=== PATIENT | female | born 1975 | race Hispanic/Latino ===

== ENCOUNTER 2019-12-23 09:22 | Inpatient (IN) | payer MEDICAID, SELFPAY ==
--- NOTE | 2019-12-23 10:47 | RAD ---
EXAM: Single view of the chest HISTORY: Flank pain and swelling in lower extremities. COMPARISON: 12/09/2010 FINDINGS: Single view of the chest shows a normal sized cardiomediastinal silhouette. There are multi focal infiltrates in the lungs which are more prominent in the bases. Trace bilateral pleural effusions cannot be excluded. The bones are unremarkable IMPRESSION: Bibasilar infiltrates with questionable trace bilateral pleural effusions.
[2019-12-23 10:54] LABS: #Eosinphils 0.2 thou/uL (0.0-0.7); #Lymphocytes 1.1 thou/uL (1.20-3.40); #Monocytes 0.4 thou/uL (0.11-0.59); #Neutrophils 4.2 thou/uL (1.40-6.50); %Basophils 0.4 % (0.0-1.0); %Eosinophils 4.1 % (0.0-10.0); %Lymphocytes 18.5 % (21.0-51.0); %Monocytes 7.3 % (0.0-10.0); %Neutrophils 69.7 % (42.0-75.0); Hemoglobin 9.4 g/dL (12.0-16.0); Mean Corpuscular HGB CONC 29.7 g/dL (32.0-36.0); Mean Corpuscular Hemoglobin 23.5 pg (27.0-31.0); Mean Corpuscular Volume 79.3 fL (78.0-98.0); Mean Platelet Volume 9.5 fL (7.4-10.4); Platelet Count 385 thou/uL (130-400); RBC Distribution Width 22.1 % (11.5-14.5); Red Blood Cell (RBC) Count 3.99 mill/uL (4.20-5.40)
[2019-12-23 11:18] LABS: ALT (SGPT) 19 U/L (8-55); AST (SGOT) 23 U/L (5-34); Albumin 3.1 g/dL (3.5-5.0); Alkaline Phosphatase 64 U/L (40-110); Anion Gap 13 mmol/L (10-20); BUN (Urea Nitrogen) 18 mg/dL (7.0-18.7); Bilirubin, Total 0.5 mg/dL (0.2-1.2); Calc. Creatinine Clearance 0 mL/min (70-130); Calcium 8.9 mg/dL (7.8-10.44); Carbon Dioxide 25 mmol/L (22-29); Chloride 105 mmol/L (98-107); Estimated GFR-MDRD 31; Globulin 3.7 g/dL (2.4-3.5); Glucose 146 mg/dL (70-105); Lipase 22 U/L (8-78); Magnesium 2.1 mg/dL (1.6-2.6); Potassium 4.1 mmol/L (3.5-5.1); Protein, Total 6.8 g/dL (6.0-8.3); Sodium 139 mmol/L (136-145)
[2019-12-23 11:21] LABS: Anisocytosis MODERATE=16-30 cells (100X) (0-5/hpf); Hypochromia SLIGHT = 6-15 cells (100X) (0-5/hpf); MDiff Complete? YES; Platelet Morphology Comment Appears Adequate; Polychromasia SLIGHT = 2-3 cells (100X) (0-2/hpf)
[2019-12-23] MEDS ORDERED: Nitroglycerin 2% Ointment 1 INCH/1 GM Packet ONE (12:44)
[2019-12-23] MEDS ORDERED: Furosemide 20 MG/2 ML VIAL ONE (12:44)
[2019-12-23] MEDS ORDERED: Aspirin Chewable 81 MG TAB ONE (12:44)
[2019-12-23] MEDS ORDERED: hydrALAZINE 20 MG/ML VIAL ONE (14:15)
[2019-12-23 14:37] LABS: Bacteria/HPF None Seen HPF (None Seen); Bilirubin Negative (Negative); Blood, Urine Negative (Negative); Clarity Clear (Clear); Glucose, Urine (Dipstick) Normal (Negative); Ketone, Urine Negative (Negative); Leukocyte Negative Leu/uL (Negative); Nitrite Negative (Negative); Protein, Urine (Dipstick) 100 mg/dL (Neg-Trace); RBC/HPF 0-3 HPF (0-3); Specific Gravity, Urine 1.006 (1.002-1.036); Squamous Epithelial 0-3 HPF (0-3); Urobilinogen Normal mg/dL (Less than 2); WBC/HPF 0-3 HPF (0-3)
[2019-12-23 14:58] LABS: Troponin I 0.045 ng/mL (< 0.028)
[2019-12-23] MEDS ORDERED: Senokot S 8.6-50 MG TAB PO PRN (15:59)
[2019-12-23] MEDS ORDERED: Ondansetron ODT 4 MG TAB PO PRN (15:59)
[2019-12-23] MEDS ORDERED: Calcium Carbonate 500 MG ChewTAB PO PRN (15:59)
[2019-12-23] MEDS ORDERED: Bisacodyl 5 MG TAB PO PRN (15:59)
[2019-12-23] MEDS ORDERED: Ondansetron PF 4 MG/2 ML Vial IVP PRN (15:59)
[2019-12-23 17:09] LABS: Troponin I 0.032 ng/mL (< 0.028)
--- NOTE | 2019-12-23 20:15 | PDOC.HHP ---
Hospitalist HPI - History of Present Illness leg swelling History of Present Illness: This is a 44 year old female with past medical history of diabetes, who presented to the ER with leg swelling. THe patent states that her legs have been swollen for the past three weeks. She states that she has gained over 30 pounds. Her normal weight is around 190, however the past week she was 220 pounds. She denies rashes, fevers or chills in that area. SHe also reports sharp chest pains over the past one week, that comes and goes and last for 30 minutes at a time. Her pain is worst with eating, but not on exertion. She also reports shortness of breath on exertion and while laying down. She used to sleep on one pillow but now has been sleeping on two pillows for the past one week. She also has noticed that her abdomen has become more swollen and this has been making her nauseous. She has no cough, no fevers, or no chills. The patient also reports decreased urine output over the past one week as well. She also states that she stopped using her insulin two weeks ago because of her abdominal pain and weight gain ED Course: The patient presented to the ER with a BP of 209/112, heart rate of 106. She Hospitalist ROS - Review of Systems Constitutional: denies: fever, chills Eyes: denies: pain, vision change ENT: denies: ear pain, ear discharge Respiratory: reports: shortness of breath, SOB with excertion. denies: cough, dry Cardiovascular: reports: chest pain, orthopnea. denies: palpitations Gastrointestinal: denies: nausea, vomiting, abdominal pain, diarrhea Genitourinary: reports: other (oliguria) Musculoskeletal: denies: neck pain, shoulder pain Skin: denies: rash, lesions Neurological: denies: weakness, numbness Hospitalist History - Past Medical History Other Medical History: Type II diabetes Depression - Past Surgical History Other Surgical History: Two C sections - Family History Other Family History: Diabetes in her dad Depression in her mom - Social History Smoking Status: Never smoker Alcohol: reports: Occassional Drugs: reports: none Living Situation: With Family - Exam General Appearance: NAD, awake alert Eye: PERRL, anicteric sclera ENT: normocephalic atraumatic, no oropharyngeal lesions Neck: no JVD Heart: RRR, no murmur, no gallops, no rubs Respiratory: CTAB, no rales, no ronchi Respiratory - other findings: diminished at the bases Gastrointestinal: soft Gastrointestinal - other findings: abdomen distended. Dull to percusssion RUQ and LUQ Extremities: no cyanosis, 2+ LE edema Skin: normal turgor, no lesions, no rashes Hospitalist Results - Labs Result Diagrams: 12/23/19 10:39 12/23/19 10:39 Lab results: WBC 6.0 thou/uL (4.8-10.8) 12/23/19 10:39 Hgb 9.4 g/dL (12.0-16.0) L 12/23/19 10:39 Hct 31.7 % (36.0-47.0) L 12/23/19 10:39 MCV 79.3 fL (78.0-98.0) 12/23/19 10:39 Plt Count 385 thou/uL (130-400) 12/23/19 10:39 Neutrophils % 69.7 % (42.0-75.0) 12/23/19 10:39 Sodium 139 mmol/L (136-145) 12/23/19 10:39 Potassium 4.1 mmol/L (3.5-5.1) 12/23/19 10:39 Chloride 105 mmol/L (98-107) 12/23/19 10:39 Carbon Dioxide 25 mmol/L (22-29) 12/23/19 10:39 BUN 18 mg/dL (7.0-18.7) 12/23/19 10:39 Creatinine 1.78 mg/dL (0.6-1.1) H 12/23/19 10:39 Glucose 146 mg/dL (70-105) H 12/23/19 10:39 Calcium 8.9 mg/dL (7.8-10.44) 12/23/19 10:39 Total Bilirubin 0.5 mg/dL (0.2-1.2) 12/23/19 10:39 AST 23 U/L (5-34) 12/23/19 10:39 ALT 19 U/L (8-55) 12/23/19 10:39 Alkaline Phosphatase 64 U/L (40-110) 12/23/19 10:39 Troponin I 0.032 ng/mL (< 0.028) H 12/23/19 16:36 B-Natriuretic Peptide 1383.6 pg/mL (0-100) H 12/23/19 10:39 Serum Total Protein 6.8 g/dL (6.0-8.3) 12/23/19 10:39 Albumin 3.1 g/dL (3.5-5.0) L 12/23/19 10:39 Lipase 22 U/L (8-78) 12/23/19 10:39 Urine Ketones Negative mg/dL (Negative) 12/23/19 14:12 Urine Blood Negative (Negative) 12/23/19 14:12 Urine Nitrite Negative (Negative) 12/23/19 14:12 Ur Leukocyte Esterase Negative Angela/uL (Negative) 12/23/19 14:12 Urine RBC 0-3 HPF (0-3) 12/23/19 14:12 Urine WBC 0-3 HPF (0-3) 12/23/19 14:12 Ur Squamous Epith Cells 0-3 HPF (0-3) 12/23/19 14:12 Urine Bacteria None Seen HPF (None Seen) 12/23/19 14:12 - EKG Interpretation EKG: sinus tachycardia Hospitalist H&P A/P - Plan Plan: This is a 44 year old female who presented to the ER with SOB on exertion, orthopnea, leg swelling, possibly related to CHF Acute CHF exacerbation - likely new diagnosis - will diurese with lasix 40 mg IV bid - troponin mildly elevated, will check ECHO KENNY - likely cardiorenal syndrome - diurese with lasix - UA normal Type II diabetes - insulin sliding scale for now, unclear how much she was taking at home Anemia - Hb 9.3, check iron panel, B12, folate, TSH DVT prophylaxis: heparin SC Code status: full code
[2019-12-23] MEDS ORDERED: Dextrose 50% Abboject 50 ML SYRINGE SLOW IVP PRN (20:18)
[2019-12-23] MEDS ORDERED: Dextrose 5% in Water 1,000 ML IV PRN (20:18)
[2019-12-23 20:29] VITALS: BMI 35.9
[2019-12-23] MEDS: Furosemide 40 MG/4 ML VIAL SLOW IVP SCH (21:16)
[2019-12-23] MEDS: Heparin 5,000 UNITS/ML VIAL SC SCH (21:16)
[2019-12-23] MEDS: Acetaminophen 325 MG TAB PO PRN (21:17)
[2019-12-24] MEDS: Acetaminophen 325 MG TAB PO PRN ×4 (04:26→20:32)
[2019-12-24] MEDS ORDERED: hydrALAZINE 20 MG/ML VIAL SLOW IVP SCH (04:30)
[2019-12-24 05:10] LABS: Iron 20 ug/dL (50-170); Iron Binding Capacity, Total 263 mcg/dL (265-497)
[2019-12-24 05:11] LABS: ALT (SGPT) 16 U/L (8-55); AST (SGOT) 22 U/L (5-34); Albumin 2.8 g/dL (3.5-5.0); Alkaline Phosphatase 56 U/L (40-110); Anion Gap 13 mmol/L (10-20); BUN (Urea Nitrogen) 16 mg/dL (7.0-18.7); Bilirubin, Total 0.6 mg/dL (0.2-1.2); Calc. Creatinine Clearance 70 mL/min (70-130); Calcium 8.8 mg/dL (7.8-10.44); Carbon Dioxide 23 mmol/L (22-29); Chloride 105 mmol/L (98-107); Estimated GFR-MDRD 37; Globulin 3.2 g/dL (2.4-3.5); Glucose 120 mg/dL (70-105); Iron 17 ug/dL (50-170); Iron Binding Capacity, Total 263 mcg/dL (265-497); Potassium 3.9 mmol/L (3.5-5.1); Sodium 137 mmol/L (136-145)
[2019-12-24 05:28] LABS: #Eosinphils 0.3 thou/uL (0.0-0.7); #Monocytes 0.5 thou/uL (0.11-0.59); #Neutrophils 4.4 thou/uL (1.40-6.50); %Basophils 0.8 % (0.0-1.0); %Eosinophils 4.7 % (0.0-10.0); %Lymphocytes 15.8 % (21.0-51.0); %Monocytes 8.3 % (0.0-10.0); %Neutrophils 70.5 % (42.0-75.0); Hemoglobin 8.9 g/dL (12.0-16.0); Hypochromia SLIGHT = 6-15 cells (100X) (0-5/hpf); MDiff Complete? YES; Mean Corpuscular HGB CONC 28.7 g/dL (32.0-36.0); Mean Corpuscular Hemoglobin 22.8 pg (27.0-31.0); Mean Corpuscular Volume 79.5 fL (78.0-98.0); Mean Platelet Volume 10.1 fL (7.4-10.4); Platelet Count 389 thou/uL (130-400); Platelet Morphology Comment Appears Adequate; RBC Distribution Width 22.3 % (11.5-14.5); Red Blood Cell (RBC) Count 3.88 mill/uL (4.20-5.40); White Blood Cell (WBC) Count 6.2 thou/uL (4.8-10.8)
[2019-12-24 05:34] LABS: Ferritin 32.05 ng/mL (10-291); Thyroid Stimulating Hormone 1.8048 uIU/mL (0.35-4.94)
[2019-12-24] MEDS: Heparin 5,000 UNITS/ML VIAL SC SCH ×3 (07:54→20:33)
[2019-12-24] MEDS: Furosemide 40 MG/4 ML VIAL SLOW IVP SCH ×2 (07:54→20:33)
--- NOTE | 2019-12-24 09:09 | ULT ---
BILATERAL RENAL ULTRASOUND: Date: 12/24/2019 HISTORY: Chronic renal failure. COMPARISON: None. FINDINGS: Right Kidney: Normal cortical echotexture. No hydronephrosis. Right kidney measures 11.2 x 4.2 x 5.4 cm. Left Kidney: Normal cortical echotexture. No hydronephrosis. Left kidney measures 5.0 x 11.0 x 5.6 cm. Urinary bladder has a normal mucosa. Bladder volume is 274 mL. IMPRESSION: No hydronephrosis. POS: [facility]
[2019-12-24 09:13] LABS: HBSAg Index 0.12 S/CO (0-0.99); Hep B Surf Ag Non-Reactive S/CO (NonReactive); Hep C IgG Ab Non-Reactive (NonReactive); Hep C Index 0.17 S/CO (0-0.79)
--- NOTE | 2019-12-24 09:44 | CON ---
DATE OF CONSULTATION: HISTORY OF PRESENT ILLNESS: Ms. Elena is a 44-year-old white female, who came in due to worsening leg edema. She was also complaining of some mild shortness of breath. She tells me that she has gained about 20 to 30 pounds in the last several weeks. Please note, this patient is a known diabetic. Chest x-ray showed also diffuse bilateral infiltrates of the lower lung base, which may be considered for a possibility of CHF. She has been started on diuresis. Her breathing this morning is much improved. We are being consulted for her acute kidney injury. As per her history, the patient has had a creatinine as high as more than 2 milligram percent in the outpatient setting. REVIEW OF SYSTEMS: Positive for mild shortness of breath. Positive for weight gain. Positive for leg edema. No nausea. No vomiting. No chest pain. Appetite and energy level are decreased. No fever or chills. No visual activity changes. No gross hematuria. No dysuria. No urinary frequency. No productive cough. MEDICATIONS: Currently on: 1. Furosemide 40 mg IV q.12. 2. Heparin 5000 units subcu t.i.d. 3. Hydralazine 10 mg IV q.4 p.r.n. 4. Zofran 4 mg IV q.6 p.r.n. Home medications have included: 1. Metformin 1000 mg p.o. b.i.d. 2. Lisinopril 10 mg daily. PAST MEDICAL HISTORY: Type 2 diabetes mellitus and hypertension. PAST SURGICAL HISTORY: Status post hysterectomy. SOCIAL HISTORY: The patient is , two children. Lives in [place]. Education, primary grade. Currently, no smoking. No alcohol intake. No IV drug abuse. The patient is a housewife. FAMILY HISTORY: No family history of ESRD. ALLERGIES: NONE. TRAUMA: None. IMMUNIZATION: Up-to-date. HOSPITALIZATIONS: Please see past medical history. PHYSICAL EXAMINATION: VITAL SIGNS: Blood pressure 155/83, heart rate 105, respiratory rate 18, temperature 98.2, and O2 saturation 97% on room air. GENERAL: The patient is awake, supine, comfortable, morbidly obese. SKIN: Adequate turgor. HEENT: She has slightly pale conjunctivae. Anicteric sclerae. NECK: No neck mass. No carotid bruits. No JVD. CHEST: No deformities. LUNGS: Decreased breath sounds. HEART: Tachycardic. No murmur. No gallops. No rubs. ABDOMEN: Globular, soft, and nontender. No masses. EXTREMITIES: Positive for edema. NEUROLOGIC: Awake and oriented to 3 spheres. Moving all extremities. No tremors. No asterixis. No ataxia. LABORATORY DATA: Laboratories of December 24, 2019; white count 6.2, hemoglobin 8.9. Sodium 137, potassium 3.9, chloride 105, carbon dioxide 23, BUN 16, creatinine 1.54, glucose 120, iron 17, TIBC 263. AST 22, ALT 16, and albumin 2.8. Urinalysis of December 23, 2019; specific gravity 1.006, urine protein is 100, rbc 0 to 3, wbc 0 to 3. BNP is elevated at 1383. Troponin I 0.045. Cardiac echo pending. Chest x-ray did show bibasilar bilateral infiltrates. ASSESSMENT AND PLAN: 1. Shortness of breath. Consider the possibility of congestive heart failure with elevated BNP and chest x-ray findings. Agree with the current diuretic regimen. 2. Acute kidney injury-most likely related to the previous use of lisinopril. We will hold off lisinopril temporarily. We would also at least do an albumin infusion of 25 g IV q.6 for six doses while she is on a diuretic regimen. We are awaiting a cardiac echo. 3. Proteinuria, this most likely from an underlying diabetic nephropathy. Please note, a renal ultrasound has been ordered. We will be rechecking a basic met and CBC again in a.m. 4. Anemia-most likely iron deficiency anemia. She may need a GI workup in the near future. Thank you for the consult. We will continue to follow. Job ID: [id number] [facility]
[2019-12-24] MEDS: Albumin 25% 25 GM/100 ML BOT IVPB SCH ×2 (10:08→15:18)
[2019-12-24] MEDS: HumaLOG 300 UNITS/3 ML VIAL SC PRN (10:59)
[2019-12-24 13:46] LABS: Creatinine, Urine 41.25 mg/dL (47-110)
[2019-12-24] MEDS: hydrALAZINE 20 MG/ML VIAL SLOW IVP PRN (15:32)
--- NOTE | 2019-12-24 15:58 | PDOC.HOSPP ---
- Subjective Encounter Date: 12/24/19 Encounter Time: 07:00 Subjective: The patient states she feels a bit better. Her leg swelling has gone down some. She is not sure if she lost weight or not. No dyspnea on exertion. ECHO shows EF 45% - Objective Vital Signs & Weight: Vital Signs (12 hours) Temp Pulse Resp BP Pulse Ox 12/24/19 15:29 99.7 F H 106 H 18 179/87 H 97 12/24/19 11:25 98.1 F 104 H 18 160/88 H 97 12/24/19 07:04 98.2 F 105 H 18 155/83 H 97 12/24/19 04:26 107 H Weight Weight 209 lb Result Diagrams: 12/24/19 04:33 12/24/19 04:33 Additional Labs: Accuchecks 12/24/19 12/24/19 11:00 05:54 POC Glucose 231 H 128 H Hospitalist ROS - Review of Systems Constitutional: denies: fever, chills - Medication Medications: Active Medications Generic Name Dose Route Start Last Admin Trade Name Freq PRN Reason Stop Dose Admin Acetaminophen 650 mg 12/23/19 15:59 12/24/19 15:32 Tylenol PO 650 mg Q4H PRN Administration Headache/Fever/Mild Pain (1-3) Albumin Human 25 gm 12/24/19 09:00 12/24/19 15:18 Albumin 25% IVPB 12/25/19 09:01 25 gm 0300,0900,1500 CINDY Administration Calcium Carbonate 1,000 mg 12/23/19 15:59 12/23/19 21:17 Tums PO 1,000 mg Q4H PRN Administration Heartburn or Indigestion Furosemide 40 mg 12/23/19 21:00 12/24/19 07:54 Lasix SLOW IVP 40 mg BID CINDY Administration Heparin Sodium (Porcine) 5,000 units 12/23/19 21:00 12/24/19 15:18 Heparin SC 5,000 units TID CINDY Administration Hydralazine HCl 10 mg 12/24/19 04:17 12/24/19 15:32 Apresoline SLOW IVP 10 mg Q4H PRN Administration SBP Greater Than 170 Insulin Human Lispro 0 units 12/23/19 20:18 12/24/19 10:59 Humalog SC 3 unit .MILD SLIDING SCALE PRN Administration Mild Correctional Scale - Exam General Appearance: NAD, awake alert Eye: PERRL, anicteric sclera ENT: normocephalic atraumatic, no oropharyngeal lesions Neck: no JVD Heart: RRR, no murmur, no gallops, no rubs Respiratory: CTAB, no wheezes, no rales, no ronchi Gastrointestinal: soft, non-tender, non-distended, normal bowel sounds Extremities: no cyanosis, no clubbing, 2+ LE edema Skin: normal turgor, no lesions, no rashes Neurological: cranial nerve grossly intact, normal sensation to touch, no focal deficits, no new deficit Musculoskeletal: normal tone, normal strength, no muscle wasting Psychiatric: normal affect, normal behavior, A&O x 3, oriented to person Hosp A/P - Plan This is a 44 year old female who presented to the ER with SOB on exertion, orthopnea, leg swelling, possibly related to CHF Acute CHF exacerbation - likely new diagnosis - will diurese with lasix 40 mg IV bid. ECHO shows EF 45% - will place cardiology consult for new CHF diagnosis. Troponin mildly elevated KENNY - improving, creatinine down to 1.55 - continue diuresis Peripheral edema - likely from CHF - check bilateral dopplers to rule out DVT Type II diabetes - insulin sliding scale for now, unclear how much she was taking at home Anemia of chronic disease - Hb 9.3 - ferritin elevated, B12/folate, TSH normal Diet: NPO after midnight, consider stress test in am rule out IHD Code status: heparin SC
--- NOTE | 2019-12-24 18:07 | ULT ---
BILATERAL LOWER EXTREMITY VENOUS DOPPLER ULTRASOUND: 12/24/19 HISTORY: Bilateral lower extremity edema. TECHNIQUE: Valenzuela scale ultrasound with color flow and spectral Doppler imaging of the deep venous system of the l ower extremity was performed bilaterally. FINDINGS: There is good flow, compression, and augmentation noted in the common femoral, femoral, deep femoral, popliteal, posterior tibial and greater saphenous veins on either side. IMPRESSION: No evidence of DVT in either lower extremity. POS: [facility]
[2019-12-25] MEDS: Albumin 25% 25 GM/100 ML BOT IVPB SCH ×5 (02:47→21:34)
[2019-12-25 04:37] LABS: Hemoglobin 8.2 g/dL (12.0-16.0); Mean Corpuscular HGB CONC 29.6 g/dL (32.0-36.0); Mean Corpuscular Hemoglobin 23.4 pg (27.0-31.0); Mean Corpuscular Volume 79.3 fL (78.0-98.0); Mean Platelet Volume 9.9 fL (7.4-10.4); Platelet Count 339 thou/uL (130-400); RBC Distribution Width 22.2 % (11.5-14.5); Red Blood Cell (RBC) Count 3.51 mill/uL (4.20-5.40); White Blood Cell (WBC) Count 4.8 thou/uL (4.8-10.8)
[2019-12-25 04:49] LABS: Anion Gap 12 mmol/L (10-20); BUN (Urea Nitrogen) 20 mg/dL (7.0-18.7); Calc. Creatinine Clearance 65 mL/min (70-130); Calcium 9.1 mg/dL (7.8-10.44); Carbon Dioxide 26 mmol/L (22-29); Chloride 104 mmol/L (98-107); Estimated GFR-MDRD 34; Glucose 129 mg/dL (70-105); Potassium 3.7 mmol/L (3.5-5.1); Sodium 138 mmol/L (136-145)
[2019-12-25] MEDS ORDERED: Sodium Chloride 0.9% 10 ML ONE (07:49)
[2019-12-25] MEDS: Furosemide 40 MG/4 ML VIAL SLOW IVP SCH (08:01)
[2019-12-25] MEDS: hydrALAZINE 20 MG/ML VIAL SLOW IVP PRN (08:02)
[2019-12-25] MEDS: Heparin 5,000 UNITS/ML VIAL SC SCH ×3 (08:02→21:34)
[2019-12-25] MEDS: Acetaminophen 325 MG TAB PO PRN ×2 (08:19→16:58)
[2019-12-25] MEDS ORDERED: Albumin 25% 25 GM/100 ML BOT IVPB ONE (08:21)
[2019-12-25] MEDS ORDERED: Carvedilol 6.25 MG TAB PO SCH ×3 (08:39→17:00)
--- NOTE | 2019-12-25 08:55 | PRG ---
DATE OF SERVICE: 12/25/2019 SUBJECTIVE: Ms. Elena is a 44-year-old female, who was admitted for generalized edema with shortness of breath. She has been started on diuretics. I have already started her on albumin infusion. The patient tells me she is breathing better and the leg edema is much improved. A cardiac echo was done, which showed an EF of 45% to 50%. No worsening shortness of breath today. OBJECTIVE: VITAL SIGNS: Blood pressure 183/98, heart rate 109, respiratory rate 18, temperature 98, and O2 sat 95% on room air. GENERAL: The patient is awake, alert, comfortable, not in overt distress. SKIN: Adequate turgor. HEENT: She does have pinkish conjunctivae. Anicteric sclerae. NECK: No neck mass. No carotid bruits. No JVD. CHEST: No deformities. LUNGS: Clear breath sounds. HEART: Normal sinus rhythm. No murmur. No gallops. No rubs. ABDOMEN: Globular, soft, and nontender. No masses. EXTREMITIES: Positive for edema. MEDICATIONS: Medications of December 25, 2019, reviewed. LABORATORY DATA: December 24, 2019; urine protein 374, urine creatinine 41.25, ratio is 9. December 25, 2019; sodium 138, potassium 3.7, chloride 104, carbon dioxide 26, BUN 20, creatinine 1.66, and calcium 9.1. Hepatitis B surface antigen negative. Hepatitis C antibody negative. ASSESSMENT: 1. Chronic renal failure - with a longstanding history of diabetes mellitus and nephrotic range proteinuria, consider the possibility of diabetic nephropathy. Hepatitis B and C have been negative. In addition, we will do an BEBETO to rule out for possibility of lupus with this patient. Urine and serum protein immunoelectrophoresis will also be done with this patient. 2. Anasarca - continue Lasix 40 mg IV q.12. We will continue her albumin infusion. 3. Nephrotic range proteinuria and decreased ejection fraction. We will consider starting low-dose losartan 25 mg tablet once a day with careful monitoring of the renal function. Job ID: [id number]
[2019-12-25] MEDS ORDERED: hydrALAZINE 25 MG TAB PO SCH (09:00)
[2019-12-25] MEDS: Furosemide 40 MG TAB PO SCH ×2 (09:30→13:49)
--- NOTE | 2019-12-25 10:58 | CON ---
DATE OF CONSULTATION: HISTORY OF PRESENT ILLNESS: The patient is a 44-year-old woman, who presents for evaluation of dyspnea, lower extremity swelling, and epigastric discomfort. The patient has no previous cardiac history. The patient does have a history of diabetes mellitus and hypertension. The patient states she has been compliant with her medications. The patient reports a few weeks ago, she started having lower extremity swelling, she noted having increasing dyspnea. The patient also reported developing epigastric discomfort. The patient presented to the emergency room , admitted for further evaluation. The patient denies having any chest discomfort. The patient has cardiac risk factors of hypertension and diabetes mellitus. PAST MEDICAL HISTORY: 1. Hypertension. 2. Diabetes mellitus. PAST SURGICAL HISTORY: . SOCIAL HISTORY: Nonsmoker. ALLERGIES: NO KNOWN DRUG ALLERGIES. MEDICATIONS: 1. Lisinopril 10 daily. 2. Metformin 1000 b.i.d. REVIEW OF SYSTEMS: Ten-point system otherwise unremarkable. No history of easy bruising or bleeding or bright red blood per rectum. PHYSICAL EXAMINATION: GENERAL: This is an obese woman, in no acute distress. VITAL SIGNS: Blood pressure 183/98. NECK: Showed no jugular venous distention. LUNGS: Clear to auscultation. HEART: Regular rate and rhythm. Normal S1 and S2. No murmurs. ABDOMEN: Distended. EXTREMITIES: Showed mild bilateral edema. LABORATORY DATA: Sodium 138, potassium 3.7, chloride 104, bicarbonate 26, BUN 20, creatinine is 1.6. BNP was 1383. Her white blood cell count is 4.8, hemoglobin 8.2, hematocrit 27.8, and her platelets are 339. EKG normal sinus rhythm with a nonspecific T-wave abnormality. Echocardiogram, mildly decreased left ventricular ejection fraction at 45% to 50%. Chest x-ray revealed her to have normal heart size with small bilateral effusions. IMPRESSION: 1. Malignant hypertension. 2. Congestive heart failure, combined systolic/diastolic. 3. Renal insufficiency. 4. Diabetes mellitus. 5. Anemia. This patient presents with congestive heart failure. She has very poorly controlled hypertension. Her systolic blood pressure was over 200 on admission. The patient needs much more close monitoring of her blood pressure and her diabetes. The patient will undergo a stress test today to make sure there is no evidence of significant ischemia. We will follow this patient with you through her hospitalization. Job ID: [id number] [facility]
[2019-12-25] MEDS ORDERED: Regadenoson 0.4 MG/5 ML SYRINGE ONE (13:21)
[2019-12-25] MEDS: Losartan 25 MG TAB PO SCH (13:49)
--- NOTE | 2019-12-25 14:04 | NM ---
Radionucleotide stress only myocardial perfusion scan with CT attenuation and SPECT imaging HISTORY: Chest pain. FINDINGS: Lexiscan protocol. Homogeneous uptake of radiotracer throughout the left ventricular myocar dium. No focal perfusion defect or reversibility. QGS analysis of gated SPECT images shows small dyskinetic portion of the distal inferior wall. Left v entricular ejection fraction calculated at 57%. IMPRESSION : No evidence of ischemia. Normal LVEF.
--- NOTE | 2019-12-25 15:51 | PDOC.HOSPP ---
- Subjective Encounter Date: 12/25/19 Encounter Time: 09:00 Subjective: THe patient feels better today. SHe is able to walk, has some SOB while ambulating but improved. Leg swelling has improved. Pt had stress test today - Objective Vital Signs & Weight: Vital Signs (12 hours) Temp Pulse Resp BP Pulse Ox 12/25/19 15:47 112 H 16 164/83 H 97 12/25/19 13:45 98.2 F 114 H 16 153/75 H 96 12/25/19 10:23 174/84 H 12/25/19 07:55 98 F 109 H 18 183/98 H 95 12/25/19 04:00 98.6 F 107 H 18 183/96 H Weight Weight 217 lb 11.2 oz I&O: 12/24/19 12/25/19 12/26/19 06:59 06:59 06:59 Intake Total 240 Balance 240 Result Diagrams: 12/25/19 04:13 12/25/19 04:13 Additional Labs: Accuchecks 12/23/19 22:45 POC Glucose 167 H Hospitalist ROS - Review of Systems Constitutional: denies: fever, chills - Medication Medications: Active Medications Generic Name Dose Route Start Last Admin Trade Name Freq PRN Reason Stop Dose Admin Acetaminophen 650 mg 12/23/19 15:59 12/25/19 08:19 Tylenol PO 650 mg Q4H PRN Administration Headache/Fever/Mild Pain (1-3) Albumin Human 25 gm 12/25/19 09:00 12/25/19 15:09 Albumin 25% IVPB 12/26/19 03:01 25 gm Q6H CINDY Administration Calcium Carbonate 1,000 mg 12/23/19 15:59 12/23/19 21:17 Tums PO 1,000 mg Q4H PRN Administration Heartburn or Indigestion Furosemide 40 mg 12/25/19 09:00 12/25/19 13:49 Lasix PO 40 mg 0900,1400 CINDY Administration Heparin Sodium (Porcine) 5,000 units 12/23/19 21:00 12/25/19 15:09 Heparin SC 5,000 units TID CINDY Administration Hydralazine HCl 10 mg 12/24/19 04:17 12/25/19 08:02 Apresoline SLOW IVP 10 mg Q4H PRN Administration SBP Greater Than 170 Insulin Human Lispro 0 units 07/20/20 20:18 12/24/19 10:59 Humalog SC 3 unit .MILD SLIDING SCALE PRN Administration Mild Correctional Scale Losartan Potassium 25 mg 12/25/19 09:00 12/25/19 13:49 Cozaar PO 25 mg DAILY CINDY Administration Sodium Chloride 10 ml 12/25/19 09:00 12/25/19 10:09 Flush - Normal Saline IVF Not Given Q12HR CINDY - Exam General Appearance: NAD, awake alert Eye: PERRL, anicteric sclera ENT: normocephalic atraumatic, no oropharyngeal lesions Neck: no JVD Heart: RRR, no murmur, no gallops, no rubs Respiratory: CTAB, no wheezes, no rales, no ronchi Gastrointestinal: soft, non-tender, non-distended, normal bowel sounds Extremities: no cyanosis, no clubbing, 2+ LE edema Skin: normal turgor, no lesions, no rashes Neurological: cranial nerve grossly intact, normal sensation to touch, no focal deficits, no new deficit Musculoskeletal: normal tone, normal strength, no muscle wasting Psychiatric: normal affect, normal behavior, A&O x 3 Hosp A/P - Plan This is a 44 year old female who presented to the ER with SOB on exertion, orthopnea, leg swelling, possibly related to CHF Acute systolic CHF -. ECHO shows EF 45%. Was on lasix 40 mg IV bid, switch to oral 40 mg po bid today 12/24 - stress test today 12/24 shows no ischemia, dyskinetic inferior wall. Per cardiology medical management - I will add aspirin, check lipid panel tomorrow - bilateral dopplers negative for DVT - cardiology has been consulted #Hypertension #Sinus tachycardia - given imdur 30 mg this am - start coreg tonight KENNY - improving, creatinine increased again to 1.66 - nephrology is giving albumin - BEBETO pending Type II diabetes - insulin sliding scale for now, unclear how much she was taking at home Anemia of chronic disease - Hb 9.3 - ferritin elevated, B12/folate, TSH normal Diet: NPO after midnight, consider stress test in am rule out IHD Code status: heparin SC
[2019-12-25] MEDS ORDERED: Aspirin 81 mg Enteric Coated Tablet PO SCH (16:00)
[2019-12-25] MEDS: Carvedilol 6.25 MG TAB PO SCH (16:55)
[2019-12-25] MEDS ORDERED: Atorvastatin Calcium 20 MG TAB PO SCH (21:00)
[2019-12-26] MEDS: Albumin 25% 25 GM/100 ML BOT IVPB SCH (03:27)
[2019-12-26 04:44] LABS: #Basophils 0.1 thou/uL (0.0-0.2); #Eosinphils 0.4 thou/uL (0.0-0.7); #Lymphocytes 1.1 thou/uL (1.20-3.40); #Monocytes 0.5 thou/uL (0.11-0.59); #Neutrophils 2.5 thou/uL (1.40-6.50); %Basophils 1.1 % (0.0-1.0); %Eosinophils 8.2 % (0.0-10.0); %Lymphocytes 24.5 % (21.0-51.0); %Monocytes 11.2 % (0.0-10.0); Hemoglobin 7.8 g/dL (12.0-16.0); Mean Corpuscular HGB CONC 28.8 g/dL (32.0-36.0); Mean Corpuscular Hemoglobin 23.7 pg (27.0-31.0); Mean Corpuscular Volume 82.1 fL (78.0-98.0); Mean Platelet Volume 10.1 fL (7.4-10.4); Platelet Count 308 thou/uL (130-400); RBC Distribution Width 22.2 % (11.5-14.5); Red Blood Cell (RBC) Count 3.29 mill/uL (4.20-5.40); White Blood Cell (WBC) Count 4.6 thou/uL (4.8-10.8)
[2019-12-26 05:07] LABS: Anion Gap 16 mmol/L (10-20); BUN (Urea Nitrogen) 23 mg/dL (7.0-18.7); Calc. Creatinine Clearance 68 mL/min (70-130); Calcium 9.2 mg/dL (7.8-10.44); Carbon Dioxide 22 mmol/L (22-29); Cardiac Risk 3.8 (Less than 4.5); Chloride 104 mmol/L (98-107); Cholesterol 123 mg/dl (< 200 Desired); Estimated GFR-MDRD 33; Glucose 126 mg/dL (70-105); HDL Cholesterol 32 mg/dL (>60 Neg Risk); LDL Cholesterol, Calculated 67 mg/dL; Potassium 3.6 mmol/L (3.5-5.1); Sodium 138 mmol/L (136-145); Triglycerides 118 mg/dL (Less than 150)
--- NOTE | 2019-12-26 08:20 | PRG ---
DATE OF SERVICE: 12/26/2019 SUBJECTIVE: Ms. Elena is a 44-year-old female who was admitted for generalized edema. Initial cardiac echo showed a decreased EF, but stress test was done, which showed no active ischemia and the EF was noted to be within normal with that study. She also was worked up for the proteinuria, which is secondary to her presumed diabetic nephropathy. She does pill nephrotic range proteinuria. For that reason, we started her on losartan 25 mg tablet once a day. She has also been receiving albumin infusion to help maintain her GFR. No new complaints today. She tells me she is feeling better and breathing better. OBJECTIVE: VITAL SIGNS: Blood pressure is 175/95 - before BP medications, heart rate 104, respiratory rate 20, temperature 99.4, O2 saturation is 95%. GENERAL: The patient is awake, alert, comfortable, obese, not in distress. SKIN: Adequate turgor. HEENT: She has slightly pale conjunctivae. Anicteric sclerae. No neck mass. No carotid bruits. No JVD. CHEST: No deformities. LUNGS: Clear breath sounds. HEART: Normal sinus rhythm. No murmur. No gallops. No rubs. ABDOMEN: Globular, soft, nontender. No masses. EXTREMITIES: Trace edema. MEDICATIONS: Medications of December 26, 2019, was reviewed. LABORATORY DATA: Laboratories of December 26, 2019; white count 4.6, hemoglobin 7.8. Sodium 138, potassium 3.6, chloride 104, carbon dioxide 22, BUN 23, creatinine 1.67, glucose 126, calcium 9.2. Cholesterol is 123. ASSESSMENT AND PLAN: 1. Anemia - check stool cards. Consider starting ferrous sulfate 325 mg p.o. b.i.d. 2. Nephrotic range proteinuria - hepatitis B and C were negative. We are awaiting for an BEBETO with this patient. She will continue current diuretic regimen. Losartan has been added. 3. Chronic heart failure secondary to diabetic nephropathy, stable. Continue supportive care. 4. Recheck CBC, basic metabolic in a.m. Job ID: [id number]
[2019-12-26] MEDS: Furosemide 40 MG TAB PO SCH ×2 (08:31→15:50)
[2019-12-26] MEDS: Carvedilol 6.25 MG TAB PO SCH (08:31)
[2019-12-26] MEDS: Losartan 25 MG TAB PO SCH (08:31)
[2019-12-26] MEDS: Heparin 5,000 UNITS/ML VIAL SC SCH (08:32)
[2019-12-26] MEDS: hydrALAZINE 20 MG/ML VIAL SLOW IVP PRN (08:51)
[2019-12-26] MEDS ORDERED: Carvedilol 6.25 MG TAB PO SCH ×2 (09:00→17:00)
[2019-12-26] MEDS ORDERED: Aspirin 81 mg Enteric Coated Tablet PO SCH (09:00)
[2019-12-26] MEDS ORDERED: Amlodipine 5 MG TAB PO SCH (09:00)
[2019-12-26] MEDS: Acetaminophen 325 MG TAB PO PRN (11:14)
[2019-12-26 11:18] VITALS: TEMP 96.9
[2019-12-26 12:02] LABS: ANA Symphony (Qualitative) Negative (Negative); ANA Symphony (Quantitative) 0.1 Ratio (< 0.7 Negative); dsDNA IgG Antibody Less than 0.5 IU/mL (<10 Negative)
[2019-12-26] MEDS: HumaLOG 300 UNITS/3 ML VIAL SC PRN (13:10)
[2019-12-26 16:13] VITALS: BP 165/82
[2019-12-26] MEDS ORDERED: Ferrous Sulfate 325 MG TAB PO SCH (17:00)
--- NOTE | 2019-12-27 03:18 | DIS ---
DATE OF ADMISSION: 12/23/2019 DATE OF DISCHARGE: 12/26/2019 CONSULTATIONS: 1. Cardiology with Pj Burroughs MD. 2. Jim Kelly MD with Nephrology. DISCHARGE DIAGNOSES: 1. Acute systolic CHF with mild pericardial effusion 2. Hypertensive urgency. 3. Sinus tachycardia. 4. Acute kidney injury. 5. Anemia of chronic disease. BRIEF HISTORY OF PRESENT ILLNESS: This is a 44-year-old female with a past medical history of diabetes, who presented to the emergency room with worsening leg swelling for the past 3 weeks. The patient stated that she gained over 30 pounds. She also reported some sharp pains in her chest that comes and goes, that last for 30 minutes at a time. She also reported some orthopnea. She also reported decreased urine output. She presented to the ER with further workup. HOSPITAL COURSE: Acute systolic CHF: The patient was noted to have bibasilar infiltrates on her chest x-ray. She was started on Lasix 40 mg IV b.i.d. She did have improvement in her leg swelling with this. She had an echocardiogram, which showed an EF of 45% to 50%. She was seen by Cardiology in consultation for new diagnosis of CHF. She underwent a nuclear stress test on the which showed no evidence of ischemia. However, there was a small dyskinetic portion of the distal inferior wall. She was started on aspirin and statin and prescribed this on discharge. She should follow a 2 L fluid restriction. She was discharged with oral Lasix 40 mg p.o. b.i.d. She should follow up with her PCP in a week. Hypertensive urgency: The patient had blood pressures of over 180 systolic while in the hospital. She was started on amlodipine 5 mg p.o. daily and Coreg 12.5 mg p.o. daily. Her losartan was discontinued temporarily given her creatinine of 1.67 and unclear baseline creatinine. She will follow up with Dr. Leong in a week and consider resuming losartan if her creatinine remains stable. Possible iron deficiency anemia: The patient was noted to have hemoglobin of 9.3. Her ferritin was noted to be 32. Her B12, folate, and TSH were normal. She was started on iron supplements 325 mg p.o. b.i.d. Should consider a repeat CBC in 6 weeks. Acute kidney injury: The patient presented with a creatinine of 1.78. She was given IV diuresis with improvement in her creatinine to 1.66. She did report like some dizziness and lightheadedness with ambulating. Therefore, further aggressive diuresis was not done. She will follow up with Dr. Leong in a week as mentioned above. DISCHARGE PHYSICAL EXAMINATION: VITAL SIGNS: Temperature 96.9, heart rate 100, respiratory rate 18, O2 saturation 100% on room air, and blood pressure 165/82. GENERAL: The patient is alert, awake, and oriented x3. CVS: Regular rate and rhythm with no murmurs, rubs, or gallops. LUNGS: Clear to auscultation bilaterally. ABDOMEN: Positive bowel sounds. Soft, nontender, and nondistended. EXTREMITIES: The patient has 2+ pitting edema. PERTINENT LABORATORY DATA: CBC 12/25: White count 4.7, hemoglobin 7.8, hematocrit 27.0, and platelet count 308. BMP 12/25: Unremarkable except for creatinine of 1.67. Lipid panel: Triglyceride 118, LDL 67, HDL 32, and cholesterol 123. Vitamin B12: 555. Folate: 16. TSH: 1.8. UA: Negative. BEBETO panel: Negative. Hep serologies: Negative. IMAGING: Echo 12/23: EF of 45% to 50%. Mildly enlarged right atrium. Mild MR. Mild TR. Trace pulmonic regurg. Mild pericardial effusion. Chest x-ray 12/22: Bibasilar infiltrates with trace bilateral pleural effusions. Renal ultrasound 12/23: No hydronephrosis. Dopplers of bilateral lower extremities 12/23: Shows no DVT. Nuclear stress test 12/24: Shows no ischemia. DISCHARGE CONDITION: Stable. ACTIVITY: As tolerated. DIET: Heart healthy diet with a 2 L fluid restriction. DISCHARGE MEDICATIONS: 1. Amlodipine 5 mg p.o. daily. 2. Aspirin 81 mg p.o. daily. 3. Atorvastatin 20 mg p.o. at bedtime. 4. Coreg 12.5 mg p.o. b.i.d. 5. Ferrous sulfate 325 mg p.o. b.i.d. 6. Lasix 40 mg p.o. twice daily. DISCHARGE INSTRUCTIONS: The patient to follow up with her PCP in a week and have repeat CBC done to follow up anemia and have her creatinine repeated in a week. Consider starting losartan if her creatinine remains stable. Job ID: [id number] [facility]
== END 2019-12-26 16:25 | disposition home or self-care (01) | DRG 292 ==
LOC: ERS 09:22 → OBSVTOIN 14:34 → ERHOLD 14:34 → 2NO 18:44
PROVIDERS: ADMIT Internal Medicine; ATTEND Internal Medicine
DX: I50.23 Acute on chronic systolic (congestive) heart failure (principal); I31.3 Pericardial effusion (noninflammatory); N17.9 Acute kidney failure, unspecified; I16.0 Hypertensive urgency; R00.0 Tachycardia, unspecified; D63.1 Anemia in chronic kidney disease; D50.9 Iron deficiency anemia, unspecified; F32.9 Major depressive disorder, single episode, unspecified; I10 Essential (primary) hypertension; N18.9 Chronic kidney disease, unspecified; E11.22 Type 2 diabetes mellitus with diabetic chronic kidney disease; Z90.710 Acquired absence of both cervix and uterus; Z79.899 Other long term (current) drug therapy; Z79.84 Long term (current) use of oral hypoglycemic drugs
CPT/HCPCS: 36415; 36416; 71045; 76770; 78452; 80048; 80053; 80061; 81003; 81015; 82570; 82607; 82728; 82746; 83540; 83550; 83690; 83735; 83880; 84156; 84443; 84484; 85025; 85027; 86038; 86225; 86803; 87340; 93005; 93017; 93306; 93970; 94760; 96374; 96375; 97139; A9500; J0360; J1644; J1940; J2785; P9047

== ENCOUNTER 2020-09-16 18:59 | Inpatient (IN) | payer MEDICAID, OTHER, SELFPAY ==
[2020-09-16 19:55] LABS: #Basophils 0.1 thou/uL (0.0-0.2); #Eosinphils 0.3 thou/uL (0.0-0.7); #Lymphocytes 1.1 thou/uL (1.20-3.40); #Monocytes 0.5 thou/uL (0.11-0.59); #Neutrophils 4.2 thou/uL (1.40-6.50); %Basophils 1.3 % (0.0-1.0); %Eosinophils 4.3 % (0.0-10.0); %Lymphocytes 17.3 % (21.0-51.0); %Monocytes 8.5 % (0.0-10.0); %Neutrophils 68.7 % (42.0-75.0); Hemoglobin 8.7 g/dL (12.0-16.0); Mean Corpuscular HGB CONC 31.3 g/dL (32.0-36.0); Mean Corpuscular Hemoglobin 26.4 pg (27.0-31.0); Mean Corpuscular Volume 84.5 fL (78.0-98.0); Mean Platelet Volume 8.8 fL (7.4-10.4); Platelet Count 291 thou/uL (130-400); RBC Distribution Width 12.6 % (11.5-14.5); Red Blood Cell (RBC) Count 3.28 mill/uL (4.20-5.40); White Blood Cell (WBC) Count 6.2 thou/uL (4.8-10.8)
[2020-09-16 20:17] LABS: ALT (SGPT) 55 U/L (8-55); AST (SGOT) 44 U/L (5-34); Albumin 3.4 g/dL (3.5-5.0); Alkaline Phosphatase 88 U/L (40-110); Anion Gap 16 mmol/L (10-20); BUN (Urea Nitrogen) 72 mg/dL (7.0-18.7); Bilirubin, Total 0.4 mg/dL (0.2-1.2); Calc. Creatinine Clearance 0 mL/min (70-130); Calcium 8.7 mg/dL (7.8-10.44); Carbon Dioxide 19 mmol/L (22-29); Chloride 106 mmol/L (98-107); Globulin 3.6 g/dL (2.4-3.5); Glucose 116 mg/dL (70-105); Potassium 5.2 mmol/L (3.5-5.1); Sodium 136 mmol/L (136-145)
[2020-09-16] MEDS ORDERED: Ondansetron ODT 4 MG TAB PO PRN (23:21)
[2020-09-16] MEDS ORDERED: Acetaminophen 325 MG TAB PO PRN (23:21)
[2020-09-16] MEDS ORDERED: Ondansetron PF 4 MG/2 ML Vial IVP PRN (23:21)
[2020-09-16] MEDS ORDERED: Dextrose 5% in Water 1,000 ML IV PRN (23:25)
[2020-09-16] MEDS ORDERED: HumaLOG 300 UNITS/3 ML VIAL SC PRN (23:25)
[2020-09-16] MEDS ORDERED: Dextrose 50% Abboject 50 ML SYRINGE SLOW IVP PRN (23:25)
[2020-09-17 01:14] VITALS: BMI 34.5
[2020-09-17] MEDS ORDERED: CEFAZOLIN 2 GM in Premix Bag 1 BAG IVPB SCH (08:00)
[2020-09-17] MEDS: Enoxaparin Sodium 30 MG/0.3 ML SYRINGE SC SCH (09:04)
[2020-09-17] MEDS ORDERED: Tuberculin PPD 0.1 ML VIAL I-DERMAL SCH (09:30)
[2020-09-17 10:08] LABS: SARS-CoV-2 PCR by NAA Not Detected (NotDetected)
[2020-09-17 10:26] LABS: #Eosinphils 0.2 thou/uL (0.0-0.7); #Lymphocytes 1.2 thou/uL (1.20-3.40); #Monocytes 0.4 thou/uL (0.11-0.59); #Neutrophils 4.6 thou/uL (1.40-6.50); %Basophils 0.7 % (0.0-1.0); %Eosinophils 3.6 % (0.0-10.0); %Lymphocytes 18.6 % (21.0-51.0); %Monocytes 6.1 % (0.0-10.0); %Neutrophils 70.9 % (42.0-75.0); Hemoglobin 9.2 g/dL (12.0-16.0); Mean Corpuscular HGB CONC 31.6 g/dL (32.0-36.0); Mean Corpuscular Hemoglobin 26.7 pg (27.0-31.0); Mean Corpuscular Volume 84.4 fL (78.0-98.0); Platelet Count 324 thou/uL (130-400); RBC Distribution Width 12.5 % (11.5-14.5); Red Blood Cell (RBC) Count 3.46 mill/uL (4.20-5.40); White Blood Cell (WBC) Count 6.5 thou/uL (4.8-10.8)
[2020-09-17 10:43] LABS: Anion Gap 13 mmol/L (10-20); BUN (Urea Nitrogen) 68 mg/dL (7.0-18.7); Calc. Creatinine Clearance 27 mL/min (70-130); Calcium 9.2 mg/dL (7.8-10.44); Carbon Dioxide 22 mmol/L (22-29); Chloride 105 mmol/L (98-107); Glucose 129 mg/dL (70-105); Iron 56 ug/dL (50-170); Iron Binding Capacity, Total 339 mcg/dL (265-497); Potassium 4.4 mmol/L (3.5-5.1); Sodium 136 mmol/L (136-145)
[2020-09-17 10:50] LABS: Anion Gap 16 mmol/L (10-20); BUN (Urea Nitrogen) 68 mg/dL (7.0-18.7); Calc. Creatinine Clearance 27 mL/min (70-130); Calcium 9.2 mg/dL (7.8-10.44); Carbon Dioxide 19 mmol/L (22-29); Chloride 105 mmol/L (98-107); Glucose 130 mg/dL (70-105); Potassium 4.3 mmol/L (3.5-5.1); Sodium 136 mmol/L (136-145)
[2020-09-17 11:09] LABS: HBSAB Concentration Less than 8.00 mIU/mL; HBSAg Index 0.14 S/CO (0-0.99); Hep B Core Total Ab Non-Reactive (NonReactive); Hep B Core Total Index 0.07 S/CO (0-0.79); Hep B Surf AB Non-Reactive (NonReactive); Hep B Surf Ag Non-Reactive S/CO (NonReactive); Hep C IgG Ab Non-Reactive (NonReactive); Hep C Index 0.14 S/CO (0-0.79)
[2020-09-17] MEDS: Carvedilol 6.25 MG TAB PO SCH (20:47)
[2020-09-17] MEDS: Atorvastatin Calcium 20 MG TAB PO SCH (20:47)
[2020-09-18] MEDS ORDERED: hydrALAZINE 20 MG/ML VIAL SLOW IVP SCH (01:30)
[2020-09-18 05:28] LABS: Hemoglobin 8.3 g/dL (12.0-16.0); Mean Corpuscular HGB CONC 32.1 g/dL (32.0-36.0); Mean Corpuscular Hemoglobin 27.1 pg (27.0-31.0); Mean Corpuscular Volume 84.4 fL (78.0-98.0); Platelet Count 265 thou/uL (130-400); RBC Distribution Width 12.6 % (11.5-14.5); Red Blood Cell (RBC) Count 3.05 mill/uL (4.20-5.40); White Blood Cell (WBC) Count 4.6 thou/uL (4.8-10.8)
[2020-09-18] MEDS: Amlodipine 10 MG TAB PO SCH (09:05)
[2020-09-18] MEDS: Carvedilol 6.25 MG TAB PO SCH ×2 (09:06→21:11)
[2020-09-18] MEDS: Enoxaparin Sodium 30 MG/0.3 ML SYRINGE SC SCH (09:07)
[2020-09-18] MEDS ORDERED: Propofol 1,000 MG/100 ML VIAL IV ONE (11:06)
[2020-09-18] MEDS ORDERED: Sodium Chloride 0.9% 20 ML ONE (11:31)
[2020-09-18] MEDS ORDERED: Bupivacaine PF 0.5% 30 ML VIAL ONE (11:31)
[2020-09-18] MEDS ORDERED: Protamine Sulfate 50 MG/5 ML VIAL ONE (11:31)
[2020-09-18] MEDS ORDERED: Heparin 5,000 UNITS/ML VIAL ONE (11:31)
[2020-09-18] MEDS ORDERED: Lidocaine 2% w/Epinephrine 1:200K 20 ML VIAL ONE (11:31)
[2020-09-18] MEDS ORDERED: Heparin 10,000 UNITS/ 10 ML VIAL ONE (11:31)
[2020-09-18] MEDS ORDERED: Bupivacaine HCl 0.5%/Epinephrine 1:200,000/PF 30 ml Vial ONE (11:52)
[2020-09-18] MEDS: Atorvastatin Calcium 20 MG TAB PO SCH (21:11)
[2020-09-18] MEDS: Acetaminophen 500 MG TAB PO PRN (21:11)
[2020-09-19] MEDS: traMADol HCl 50 MG TAB PO PRN ×4 (00:07→16:12)
[2020-09-19 05:29] LABS: Anion Gap 14 mmol/L (10-20); BUN (Urea Nitrogen) 46 mg/dL (7.0-18.7); Calc. Creatinine Clearance 31 mL/min (70-130); Calcium 8.4 mg/dL (7.8-10.44); Carbon Dioxide 20 mmol/L (22-29); Chloride 107 mmol/L (98-107); Glucose 98 mg/dL (70-105); Phosphorus 4.2 mg/dL (2.3-4.7); Potassium 3.8 mmol/L (3.5-5.1); Sodium 137 mmol/L (136-145)
[2020-09-19 05:32] LABS: ALT (SGPT) 20 U/L (8-55); AST (SGOT) 18 U/L (5-34); Albumin 2.8 g/dL (3.5-5.0); Alkaline Phosphatase 68 U/L (40-110); Bilirubin, Direct 0.2 mg/dL (0.1-0.3); Bilirubin, Total 0.3 mg/dL (0.2-1.2)
[2020-09-19] MEDS: Amlodipine 10 MG TAB PO SCH (08:41)
[2020-09-19] MEDS: Carvedilol 6.25 MG TAB PO SCH ×2 (08:41→21:31)
[2020-09-19] MEDS: Enoxaparin Sodium 30 MG/0.3 ML SYRINGE SC SCH (08:42)
[2020-09-19] MEDS ORDERED: EPOETIN ALFA-EPBX (ESRD) 4,000 UNIT/ML VIAL SC SCH (11:00)
[2020-09-19] MEDS ORDERED: Heparin 10,000 UNITS/ 10 ML VIAL ONE (12:25)
[2020-09-19] MEDS: Ferrous Sulfate 325 MG TAB PO SCH (16:12)
[2020-09-19] MEDS: metFORMIN 500 MG TAB PO SCH (16:12)
[2020-09-19] MEDS: Atorvastatin Calcium 20 MG TAB PO SCH (21:31)
[2020-09-20] MEDS: traMADol HCl 50 MG TAB PO PRN (06:23)
[2020-09-20] MEDS: Ferrous Sulfate 325 MG TAB PO SCH ×2 (09:03→16:40)
[2020-09-20] MEDS: Carvedilol 6.25 MG TAB PO SCH ×2 (09:03→20:50)
[2020-09-20] MEDS: Amlodipine 10 MG TAB PO SCH (09:04)
[2020-09-20] MEDS: metFORMIN 500 MG TAB PO SCH ×2 (09:05→16:39)
[2020-09-20] MEDS: Enoxaparin Sodium 30 MG/0.3 ML SYRINGE SC SCH (09:07)
[2020-09-20] MEDS ORDERED: Polyethylene Glycol 3350 17 GM Packet PO SCH (12:30)
[2020-09-20] MEDS: HumaLOG 300 UNITS/3 ML VIAL SC PRN (12:47)
[2020-09-20] MEDS: Acetaminophen 500 MG TAB PO PRN (18:43)
[2020-09-20] MEDS: Atorvastatin Calcium 20 MG TAB PO SCH (20:50)
[2020-09-21] MEDS: Acetaminophen 500 MG TAB PO PRN (05:58)
[2020-09-21] MEDS: Ferrous Sulfate 325 MG TAB PO SCH ×2 (11:39→16:04)
[2020-09-21] MEDS: Carvedilol 6.25 MG TAB PO SCH ×2 (11:39→20:08)
[2020-09-21] MEDS: Amlodipine 10 MG TAB PO SCH (11:39)
[2020-09-21] MEDS: Polyethylene Glycol 3350 17 GM Packet PO SCH (11:40)
[2020-09-21] MEDS: metFORMIN 500 MG TAB PO SCH (12:08)
[2020-09-21] MEDS ORDERED: Heparin 10,000 UNITS/ 10 ML VIAL ONE (12:28)
[2020-09-21] MEDS ORDERED: NIFEdipine XL 30 MG TAB PO SCH (14:45)
[2020-09-21] MEDS: glipiZIDE 5 MG TAB PO SCH (16:04)
[2020-09-21] MEDS: Atorvastatin Calcium 20 MG TAB PO SCH (20:08)
[2020-09-22] MEDS: Acetaminophen 500 MG TAB PO PRN (04:45)
[2020-09-22 05:05] LABS: #Eosinphils 0.4 thou/uL (0.0-0.7); #Lymphocytes 1.4 thou/uL (1.20-3.40); #Monocytes 0.6 thou/uL (0.11-0.59); #Neutrophils 3.3 thou/uL (1.40-6.50); %Basophils 0.3 % (0.0-1.0); %Eosinophils 7.2 % (0.0-10.0); %Monocytes 11.1 % (0.0-10.0); %Neutrophils 57.4 % (42.0-75.0); Hemoglobin 8.2 g/dL (12.0-16.0); Mean Corpuscular HGB CONC 31.1 g/dL (32.0-36.0); Mean Corpuscular Hemoglobin 26.7 pg (27.0-31.0); Mean Corpuscular Volume 85.9 fL (78.0-98.0); Mean Platelet Volume 8.8 fL (7.4-10.4); Platelet Count 238 thou/uL (130-400); RBC Distribution Width 12.8 % (11.5-14.5); Red Blood Cell (RBC) Count 3.05 mill/uL (4.20-5.40); White Blood Cell (WBC) Count 5.7 thou/uL (4.8-10.8)
[2020-09-22 05:27] LABS: Anion Gap 11 mmol/L (10-20); BUN (Urea Nitrogen) 22 mg/dL (7.0-18.7); Calc. Creatinine Clearance 37 mL/min (70-130); Carbon Dioxide 27 mmol/L (22-29); Chloride 102 mmol/L (98-107); Glucose 98 mg/dL (70-105); Potassium 3.9 mmol/L (3.5-5.1); Sodium 136 mmol/L (136-145)
[2020-09-22] MEDS: Ferrous Sulfate 325 MG TAB PO SCH ×2 (08:38→17:45)
[2020-09-22] MEDS: Polyethylene Glycol 3350 17 GM Packet PO SCH (08:38)
[2020-09-22] MEDS: glipiZIDE 5 MG TAB PO SCH ×2 (08:38→17:45)
[2020-09-22] MEDS: NIFEdipine XL 30 MG TAB PO SCH ×2 (08:39→17:45)
[2020-09-22] MEDS: Carvedilol 6.25 MG TAB PO SCH ×2 (08:39→21:00)
[2020-09-22] MEDS ORDERED: Heparin 10,000 UNITS/ 10 ML VIAL ONE (12:31)
[2020-09-22] MEDS: HumaLOG 300 UNITS/3 ML VIAL SC PRN (17:48)
[2020-09-22] MEDS: traMADol HCl 50 MG TAB PO PRN (21:00)
[2020-09-22] MEDS: Atorvastatin Calcium 20 MG TAB PO SCH (21:00)
[2020-09-23] MEDS: glipiZIDE 5 MG TAB PO SCH ×2 (07:56→16:47)
[2020-09-23] MEDS: NIFEdipine XL 30 MG TAB PO SCH (07:56)
[2020-09-23] MEDS: Polyethylene Glycol 3350 17 GM Packet PO SCH (07:56)
[2020-09-23] MEDS: Ferrous Sulfate 325 MG TAB PO SCH ×2 (07:56→16:47)
[2020-09-23] MEDS: Carvedilol 6.25 MG TAB PO SCH (07:56)
[2020-09-23 08:05] VITALS: BP 167/88; TEMP 98.4
== END 2020-09-23 19:09 | disposition home or self-care (01) | DRG 674 ==
LOC: ERS 18:59 → 2SE 23:13 → T4-A 09-21 22:06
PROVIDERS: ADMIT Student in an Organized Health Care Education/Training Program; ATTEND Internal Medicine
PROC: 0JH63XZ Insertion of Tunneled Vascular Access Device into Chest Subcutaneous Tissue and Fascia, Percutaneous Approach (ICD-10-PCS; principal; 2020-09-18)
PROC: 031B09F Bypass Right Radial Artery to Lower Arm Vein with Autologous Venous Tissue, Open Approach (ICD-10-PCS; 2020-09-18)
PROC: 02H633Z Insertion of Infusion Device into Right Atrium, Percutaneous Approach (ICD-10-PCS; 2020-09-18)
PROC: B5181ZA Fluoroscopy of Superior Vena Cava using Low Osmolar Contrast, Guidance (ICD-10-PCS; 2020-09-18)
PROC: B548ZZA Ultrasonography of Superior Vena Cava, Guidance (ICD-10-PCS; 2020-09-18)
PROC: 5A1D70Z Performance of Urinary Filtration, Intermittent, Less than 6 Hours Per Day (ICD-10-PCS; 2020-09-18)
DX: E11.22 Type 2 diabetes mellitus with diabetic chronic kidney disease (principal); I50.22 Chronic systolic (congestive) heart failure; N18.6 End stage renal disease; Z20.822 Contact with and (suspected) exposure to COVID-19; I11.0 Hypertensive heart disease with heart failure; D63.1 Anemia in chronic kidney disease; E87.5 Hyperkalemia; R74.01 Elevation of levels of liver transaminase levels; Z79.84 Long term (current) use of oral hypoglycemic drugs; Z79.82 Long term (current) use of aspirin; Z79.899 Other long term (current) drug therapy; Z90.710 Acquired absence of both cervix and uterus; Z98.51 Tubal ligation status
CPT/HCPCS: 36415; 36416; 71045; 80048; 80053; 80076; 82728; 83540; 83550; 84100; 85025; 85027; 86580; 86704; 86706; 86803; 87340; 87635; 90935; 93005; 93970; C1751; C1752; G0257; J0360; J0690; J1644; J1650; J1815; J2704; J2720; Q5105; S0020; U0003; U0005

== ENCOUNTER 2020-11-26 16:34 | Inpatient (IN) | payer BC, MEDICAID, SELFPAY ==
[2020-11-26] MEDS ORDERED: Acetaminophen 500 MG TAB ONE (16:54)
[2020-11-26] MEDS ORDERED: Vancomycin 1 GM/200 ML BAG ONE (17:14)
[2020-11-26 17:16] LABS: Hemoglobin 8.4 g/dL (12.0-16.0); Mean Corpuscular HGB CONC 32.4 g/dL (32.0-36.0); Mean Corpuscular Hemoglobin 29.1 pg (27.0-31.0); Mean Corpuscular Volume 89.9 fL (78.0-98.0); Mean Platelet Volume 8.1 fL (7.4-10.4); Platelet Count 568 thou/uL (130-400); RBC Distribution Width 17.6 % (11.5-14.5); Red Blood Cell (RBC) Count 2.88 mill/uL (4.20-5.40); White Blood Cell (WBC) Count 23.3 thou/uL (4.8-10.8)
[2020-11-26 17:27] LABS: INR-International Normal Ratio 1.2; PTT 30.8 sec (22.9-36.1); Prothrombin Time 14.9 sec (12.0-14.7)
[2020-11-26] MEDS ORDERED: Piperacillin/Tazobactam 4.5 GM in Sodium Chloride 0.9% 100 ML IVPB SCH (17:30)
[2020-11-26 17:36] LABS: Anisocytosis SLIGHT = 6-15 cells (100X) (0-5/hpf); Band 3 % (5-11); Lymphocytes 8 % (21-51); MDiff Complete? YES; Monocytes 5 % (0-10); Neutrophil 82 % (42-75); Platelet Morphology Comment Appears Increased; Polychromasia MODERATE = 3-4 cells (100X) (0-2/hpf); Target Cells SLIGHT = 2-5 cells (100X) (0-1/hpf)
[2020-11-26 17:41] LABS: ALT (SGPT) 23 U/L (8-55); AST (SGOT) 24 U/L (5-34); Albumin 3.4 g/dL (3.5-5.0); Alkaline Phosphatase 263 U/L (40-110); Anion Gap 17 mmol/L (10-20); BUN (Urea Nitrogen) 10 mg/dL (7.0-18.7); Bilirubin, Total 1.1 mg/dL (0.2-1.2); Calc. Creatinine Clearance 0 mL/min (70-130); Calcium 9.1 mg/dL (7.8-10.44); Carbon Dioxide 29 mmol/L (22-29); Chloride 94 mmol/L (98-107); Globulin 5.2 g/dL (2.4-3.5); Glucose 139 mg/dL (70-105); Potassium 3.5 mmol/L (3.5-5.1); Protein, Total 8.6 g/dL (6.0-8.3); Sodium 136 mmol/L (136-145)
[2020-11-26 21:44] VITALS: BMI 31.1
[2020-11-26] MEDS ORDERED: Vancomycin HCl 500 MG in Sodium Chloride 0.9% 100 ML IVPB SCH (22:00)
[2020-11-26] MEDS ORDERED: Piperacillin/Tazobactam 3.375 GM in Sodium Chloride 0.9% 100 ML IVPB SCH (22:00)
[2020-11-26] MEDS: Piperacillin/Tazobactam 3.375 GM in Sodium Chloride 0.9% 100 ML IVPB SCH (22:29)
[2020-11-26] MEDS: Acetaminophen 325 MG TAB PO PRN (22:29)
[2020-11-26] MEDS ORDERED: Dextrose 5% in Water 1,000 ML IV PRN (22:42)
[2020-11-26] MEDS ORDERED: Dextrose 50% Abboject 50 ML SYRINGE SLOW IVP PRN (22:42)
[2020-11-27] MEDS ORDERED: Piperacillin/Tazobactam 2.25 GM in Sodium Chloride 0.9% 100 ML IVPB SCH (02:00)
[2020-11-27] MEDS: Acetaminophen 325 MG TAB PO PRN ×3 (03:03→15:58)
[2020-11-27 03:31] LABS: Bilirubin Negative (Negative); Blood, Urine 3+ (Negative); Clarity Turbid (Clear); Glucose, Urine (Dipstick) 150 mg/dL (Negative); Ketone, Urine Negative (Negative); Leukocyte Negative Leu/uL (Negative); Nitrite Negative (Negative); Protein, Urine (Dipstick) Greater than 600 mg/dL (Neg-Trace); Specific Gravity, Urine 1.023 (1.002-1.036); Squamous Epithelial 21-50 HPF (0-3); Urobilinogen Normal mg/dL (Less than 2); pH, Urine 7.5 (5.0-9.0)
[2020-11-27 03:35] LABS: Bacteria/HPF 1+ HPF (None Seen)
[2020-11-27 03:36] LABS: Urine Culture Reflex No No
[2020-11-27] MEDS: Piperacillin/Tazobactam 3.375 GM in Sodium Chloride 0.9% 100 ML IVPB SCH ×2 (05:34→12:46)
[2020-11-27 06:02] LABS: #Basophils 0.1 thou/uL (0.0-0.2); #Eosinphils 0.4 thou/uL (0.0-0.7); #Lymphocytes 1.2 thou/uL (1.20-3.40); #Monocytes 1.2 thou/uL (0.11-0.59); #Neutrophils 12.9 thou/uL (1.40-6.50); %Basophils 0.4 % (0.0-1.0); %Eosinophils 2.7 % (0.0-10.0); %Lymphocytes 7.4 % (21.0-51.0); %Monocytes 7.5 % (0.0-10.0); %Neutrophils 82.1 % (42.0-75.0); Hemoglobin 7.2 g/dL (12.0-16.0); Mean Corpuscular HGB CONC 32.5 g/dL (32.0-36.0); Mean Corpuscular Hemoglobin 29.8 pg (27.0-31.0); Mean Corpuscular Volume 91.6 fL (78.0-98.0); Mean Platelet Volume 7.9 fL (7.4-10.4); Platelet Count 469 thou/uL (130-400); RBC Distribution Width 17.5 % (11.5-14.5); Red Blood Cell (RBC) Count 2.42 mill/uL (4.20-5.40); White Blood Cell (WBC) Count 15.8 thou/uL (4.8-10.8)
[2020-11-27 06:35] LABS: Anion Gap 14 mmol/L (10-20); BUN (Urea Nitrogen) 19 mg/dL (7.0-18.7); Calc. Creatinine Clearance 24 mL/min (70-130); Calcium 8.2 mg/dL (7.8-10.44); Carbon Dioxide 27 mmol/L (22-29); Chloride 96 mmol/L (98-107); Glucose 153 mg/dL (70-105); Potassium 3.2 mmol/L (3.5-5.1); Sodium 134 mmol/L (136-145)
[2020-11-27] MEDS: Heparin 5,000 UNITS/ML VIAL SC SCH ×2 (07:58→15:01)
[2020-11-27] MEDS ORDERED: Heparin 10,000 UNITS/ 10 ML VIAL ONE (08:55)
[2020-11-27 11:09] LABS: SARS-CoV-2 PCR by NAA Not Detected (NotDetected)
[2020-11-27] MEDS ORDERED: Ondansetron ODT 4 MG TAB PO PRN (11:50)
[2020-11-27] MEDS ORDERED: Ondansetron PF 4 MG/2 ML Vial IVP PRN (11:50)
[2020-11-27] MEDS ORDERED: Lidocaine 1% w/Epinephrine 1:100K 20 ML VIAL ONE ×2 (11:56→11:59)
[2020-11-27] MEDS ORDERED: glipiZIDE 5 MG TAB PO SCH (12:30)
[2020-11-27] MEDS ORDERED: traMADol HCl 50 MG TAB PO PRN (15:56)
[2020-11-27] MEDS ORDERED: HYDROcodone/Acetaminophen 5/325 mg Tablet PO PRN (15:57)
[2020-11-27] MEDS: Carvedilol 6.25 MG TAB PO SCH (15:58)
[2020-11-27] MEDS: Sevelamer Carbonate 800 MG TAB PO SCH (15:58)
[2020-11-27] MEDS: EPOETIN ALFA-EPBX (ESRD) 4,000 UNIT/ML VIAL SC SCH (16:26)
[2020-11-27 17:24] LABS: Vancomycin, Random 20.6 ug/mL (See Comment)
[2020-11-27] MEDS ORDERED: Vancomycin HCl 1.25 GM in Sodium Chloride 0.9% 250 ML 250 ML IVPB SCH (18:00)
[2020-11-27] MEDS: Atorvastatin Calcium 20 MG TAB PO SCH (20:26)
[2020-11-27] MEDS: HumaLOG 300 UNITS/3 ML VIAL SC PRN (20:41)
[2020-11-27] MEDS ORDERED: CEFEPIME HCL IN DEXTROSE 5 % 1 GM in Premix Bag 1 BAG IVPB SCH (21:00)
[2020-11-28] MEDS: Acetaminophen 325 MG TAB PO PRN ×3 (00:27→17:07)
[2020-11-28 06:12] LABS: #Basophils 0.1 thou/uL (0.0-0.2); #Eosinphils 0.4 thou/uL (0.0-0.7); #Lymphocytes 1.6 thou/uL (1.20-3.40); #Monocytes 1.1 thou/uL (0.11-0.59); #Neutrophils 12.3 thou/uL (1.40-6.50); %Basophils 0.5 % (0.0-1.0); %Eosinophils 2.4 % (0.0-10.0); %Lymphocytes 10.3 % (21.0-51.0); %Monocytes 7.2 % (0.0-10.0); %Neutrophils 79.7 % (42.0-75.0); Hemoglobin 7.3 g/dL (12.0-16.0); Mean Corpuscular HGB CONC 32.3 g/dL (32.0-36.0); Mean Corpuscular Hemoglobin 29.8 pg (27.0-31.0); Mean Corpuscular Volume 92.3 fL (78.0-98.0); Mean Platelet Volume 7.8 fL (7.4-10.4); Platelet Count 443 thou/uL (130-400); RBC Distribution Width 17.6 % (11.5-14.5); Red Blood Cell (RBC) Count 2.43 mill/uL (4.20-5.40); White Blood Cell (WBC) Count 15.5 thou/uL (4.8-10.8)
[2020-11-28 07:10] LABS: Phosphorus 3.7 mg/dL (2.3-4.7)
[2020-11-28] MEDS: Sevelamer Carbonate 800 MG TAB PO SCH ×3 (08:20→16:00)
[2020-11-28] MEDS: glipiZIDE 5 MG TAB PO SCH (08:21)
[2020-11-28] MEDS: Cholecalciferol 1,000 UNITS (25 MCG) TAB PO SCH (08:21)
[2020-11-28] MEDS: Carvedilol 6.25 MG TAB PO SCH ×2 (08:24→16:00)
[2020-11-28] MEDS: NIFEdipine XL 30 MG TAB PO SCH (08:27)
[2020-11-28] MEDS ORDERED: NIFEdipine XL 30 MG TAB PO SCH (09:00)
[2020-11-28] MEDS: HumaLOG 300 UNITS/3 ML VIAL SC PRN ×2 (11:48→16:26)
[2020-11-28 12:45] LABS: Vancomycin, Random 18.4 ug/mL (See Comment)
[2020-11-28] MEDS ORDERED: Vancomycin HCl 1.25 GM in Sodium Chloride 0.9% 250 ML 250 ML IVPB SCH (13:00)
[2020-11-28] MEDS ORDERED: Vancomycin HCl 500 MG in Sodium Chloride 0.9% 100 ML IVPB SCH (13:00)
[2020-11-28] MEDS ORDERED: HOLD VANCOMYCIN FOR LEVEL >20 FS SCH (13:00)
[2020-11-28] MEDS ORDERED: Vancomycin 1 GM in Premix Bag 1 BAG IVPB SCH (13:00)
[2020-11-28] MEDS: Ondansetron PF 4 MG/2 ML Vial IVP PRN (15:27)
[2020-11-28 15:52] LABS: BUN (Urea Nitrogen) 16 mg/dL (7.0-18.7); Calc. Creatinine Clearance 23 mL/min (70-130); Calcium 8.7 mg/dL (7.8-10.44); Glucose 72 mg/dL (70-105)
[2020-11-28 16:03] LABS: Chloride 97 mmol/L (98-107); Potassium 3.7 mmol/L (3.5-5.1)
[2020-11-28 16:04] LABS: Sodium 135 mmol/L (136-145)
[2020-11-28 18:20] LABS: Carbon Dioxide 14 mmol/L (22-29)
[2020-11-28] MEDS: Atorvastatin Calcium 20 MG TAB PO SCH (20:28)
[2020-11-28] MEDS: Cefepime 0.5 GM in Sodium Chloride 0.9% 100 ML IVPB SCH (20:28)
[2020-11-28 20:31] LABS: Anion Gap 28 mmol/L (10-20)
[2020-11-29] MEDS: Acetaminophen 325 MG TAB PO PRN ×2 (00:18→09:37)
[2020-11-29 06:48] LABS: #Basophils 0.1 thou/uL (0.0-0.2); #Eosinphils 0.4 thou/uL (0.0-0.7); #Lymphocytes 1.4 thou/uL (1.20-3.40); #Monocytes 1.3 thou/uL (0.11-0.59); #Neutrophils 11.4 thou/uL (1.40-6.50); %Basophils 0.6 % (0.0-1.0); %Eosinophils 2.6 % (0.0-10.0); %Lymphocytes 9.8 % (21.0-51.0); %Monocytes 9.1 % (0.0-10.0); %Neutrophils 77.9 % (42.0-75.0); Mean Corpuscular HGB CONC 30.9 g/dL (32.0-36.0); Mean Corpuscular Hemoglobin 28.7 pg (27.0-31.0); Mean Corpuscular Volume 92.7 fL (78.0-98.0); Mean Platelet Volume 7.9 fL (7.4-10.4); Platelet Count 474 thou/uL (130-400); RBC Distribution Width 17.1 % (11.5-14.5); Red Blood Cell (RBC) Count 2.44 mill/uL (4.20-5.40); White Blood Cell (WBC) Count 14.6 thou/uL (4.8-10.8)
[2020-11-29 07:13] LABS: Anion Gap 14 mmol/L (10-20); BUN (Urea Nitrogen) 25 mg/dL (7.0-18.7); Calc. Creatinine Clearance 16 mL/min (70-130); Calcium 8.6 mg/dL (7.8-10.44); Carbon Dioxide 24 mmol/L (22-29); Chloride 97 mmol/L (98-107); Glucose 107 mg/dL (70-105); Potassium 3.5 mmol/L (3.5-5.1); Sodium 131 mmol/L (136-145)
[2020-11-29] MEDS: Carvedilol 6.25 MG TAB PO SCH ×2 (07:42→17:53)
[2020-11-29] MEDS: Cholecalciferol 1,000 UNITS (25 MCG) TAB PO SCH (07:42)
[2020-11-29] MEDS: glipiZIDE 5 MG TAB PO SCH (07:42)
[2020-11-29] MEDS: NIFEdipine XL 30 MG TAB PO SCH (07:42)
[2020-11-29] MEDS: Sevelamer Carbonate 800 MG TAB PO SCH ×3 (07:42→17:53)
[2020-11-29 09:30] LABS: Vancomycin, Random 15.7 ug/mL (See Comment)
[2020-11-29] MEDS ORDERED: Benzonatate 100 MG CAP PO SCH (10:45)
[2020-11-29 15:20] LABS: Pregnancy Test - Urine (BHCG) Negative (Negative); Pregu Control Background? CLEAR/WHITE (CLR/WHITE); Pregu Control Bar Appear? YES (CONTROL BAR); Specific Gravity 1.022 (1.002-1.036)
[2020-11-29] MEDS: Benzonatate 100 MG CAP PO SCH ×2 (15:35→21:25)
[2020-11-29] MEDS: Atorvastatin Calcium 20 MG TAB PO SCH (21:25)
[2020-11-29] MEDS: Cefepime 0.5 GM in Sodium Chloride 0.9% 100 ML IVPB SCH (21:25)
[2020-11-30 06:41] LABS: #Basophils 0.1 thou/uL (0.0-0.2); #Eosinphils 0.5 thou/uL (0.0-0.7); #Lymphocytes 1.6 thou/uL (1.20-3.40); #Monocytes 1.4 thou/uL (0.11-0.59); #Neutrophils 13.8 thou/uL (1.40-6.50); %Basophils 0.7 % (0.0-1.0); %Eosinophils 2.9 % (0.0-10.0); %Lymphocytes 8.9 % (21.0-51.0); %Monocytes 8.3 % (0.0-10.0); %Neutrophils 79.2 % (42.0-75.0); Hemoglobin 7.8 g/dL (12.0-16.0); Mean Corpuscular HGB CONC 32.1 g/dL (32.0-36.0); Mean Corpuscular Volume 90.5 fL (78.0-98.0); Mean Platelet Volume 7.9 fL (7.4-10.4); Platelet Count 528 thou/uL (130-400); RBC Distribution Width 16.7 % (11.5-14.5); Red Blood Cell (RBC) Count 2.68 mill/uL (4.20-5.40); White Blood Cell (WBC) Count 17.4 thou/uL (4.8-10.8)
[2020-11-30 06:58] LABS: Anion Gap 21 mmol/L (10-20); BUN (Urea Nitrogen) 36 mg/dL (7.0-18.7); Calc. Creatinine Clearance 13 mL/min (70-130); Calcium 8.9 mg/dL (7.8-10.44); Carbon Dioxide 21 mmol/L (22-29); Chloride 94 mmol/L (98-107); Glucose 148 mg/dL (70-105); Potassium 3.7 mmol/L (3.5-5.1); Sodium 132 mmol/L (136-145)
[2020-11-30] MEDS: Carvedilol 6.25 MG TAB PO SCH ×2 (07:19→16:49)
[2020-11-30] MEDS: Benzonatate 100 MG CAP PO SCH ×3 (07:20→20:49)
[2020-11-30] MEDS ORDERED: Heparin 10,000 UNITS/ 10 ML VIAL ONE (08:31)
[2020-11-30] MEDS ORDERED: Sodium Chloride 0.9% 20 ML ONE (08:31)
[2020-11-30] MEDS ORDERED: Bupivacaine PF 0.5% 30 ML VIAL ONE (08:31)
[2020-11-30] MEDS ORDERED: Lidocaine 1% w/Epinephrine 1:100K 20 ML VIAL ONE (08:31)
[2020-11-30] MEDS ORDERED: PROPOFOL 200 MG/20 ML VIAL ONE (09:01)
[2020-11-30] MEDS ORDERED: Lidocaine 1% PF 5 ML VIAL ONE (09:01)
[2020-11-30] MEDS ORDERED: Ondansetron HCl/PF 4 MG/2 ML Vial IVP PRN (09:34)
[2020-11-30] MEDS ORDERED: Promethazine HCl 25 MG/ML VIAL IVPB PRN (09:34)
[2020-11-30] MEDS ORDERED: Promethazine HCl 25 MG/ML VIAL IM PRN (09:34)
[2020-11-30] MEDS ORDERED: Acetaminophen 325 MG TAB ONE (09:40)
[2020-11-30] MEDS: Acetaminophen 325 MG TAB PO PRN ×2 (09:41→16:50)
[2020-11-30] MEDS: Cholecalciferol 1,000 UNITS (25 MCG) TAB PO SCH (10:48)
[2020-11-30] MEDS: glipiZIDE 5 MG TAB PO SCH (10:48)
[2020-11-30] MEDS: Sevelamer Carbonate 800 MG TAB PO SCH ×3 (10:48→16:49)
[2020-11-30] MEDS: NIFEdipine XL 30 MG TAB PO SCH (10:55)
[2020-11-30] MEDS: HumaLOG 300 UNITS/3 ML VIAL SC PRN ×2 (11:49→20:50)
[2020-11-30 12:02] LABS: Vancomycin, Random 12.7 ug/mL (See Comment)
[2020-11-30] MEDS ORDERED: Vancomycin HCl 750 MG in Sodium Chloride 0.9% 250 ML 250 ML IVPB SCH (13:00)
[2020-11-30] MEDS: Morphine 2 MG/ML VIAL SLOW IVP PRN (15:19)
[2020-11-30] MEDS: Atorvastatin Calcium 20 MG TAB PO SCH (20:49)
[2020-11-30] MEDS: Cefepime 0.5 GM in Sodium Chloride 0.9% 100 ML IVPB SCH (20:49)
[2020-12-01] MEDS: Morphine 2 MG/ML VIAL SLOW IVP PRN ×2 (01:01→13:05)
[2020-12-01] MEDS: Acetaminophen 325 MG TAB PO PRN ×2 (05:40→16:52)
[2020-12-01] MEDS: Sevelamer Carbonate 800 MG TAB PO SCH ×3 (08:00→16:53)
[2020-12-01] MEDS ORDERED: Heparin 10,000 UNITS/ 10 ML VIAL ONE (08:54)
[2020-12-01 09:04] LABS: Vancomycin, Random 11.7 ug/mL (See Comment)
[2020-12-01] MEDS: Vancomycin HCl 750 MG in Sodium Chloride 0.9% 250 ML 250 ML IVPB SCH (11:19)
[2020-12-01] MEDS: glipiZIDE 5 MG TAB PO SCH (13:07)
[2020-12-01] MEDS: Benzonatate 100 MG CAP PO SCH ×4 (13:07→20:11)
[2020-12-01] MEDS: Carvedilol 6.25 MG TAB PO SCH ×2 (13:08→16:53)
[2020-12-01] MEDS: Cholecalciferol 1,000 UNITS (25 MCG) TAB PO SCH (13:08)
[2020-12-01] MEDS: NIFEdipine XL 30 MG TAB PO SCH (13:08)
[2020-12-01] MEDS: HumaLOG 300 UNITS/3 ML VIAL SC PRN (16:53)
[2020-12-01] MEDS: Atorvastatin Calcium 20 MG TAB PO SCH (20:11)
[2020-12-01] MEDS: Cefepime 0.5 GM in Sodium Chloride 0.9% 100 ML IVPB SCH (20:53)
[2020-12-02] MEDS: Acetaminophen 325 MG TAB PO PRN ×2 (00:14→10:47)
[2020-12-02] MEDS: Morphine 2 MG/ML VIAL SLOW IVP PRN ×2 (07:49→20:08)
[2020-12-02] MEDS: Benzonatate 100 MG CAP PO SCH ×3 (07:55→20:08)
[2020-12-02] MEDS: Sevelamer Carbonate 800 MG TAB PO SCH ×3 (07:55→17:44)
[2020-12-02] MEDS: Cholecalciferol 1,000 UNITS (25 MCG) TAB PO SCH (07:55)
[2020-12-02] MEDS: Carvedilol 6.25 MG TAB PO SCH ×2 (07:55→17:44)
[2020-12-02] MEDS: glipiZIDE 5 MG TAB PO SCH (07:55)
[2020-12-02 08:01] LABS: #Basophils 0.1 thou/uL (0.0-0.2); #Eosinphils 0.6 thou/uL (0.0-0.7); #Lymphocytes 1.4 thou/uL (1.20-3.40); #Monocytes 1.3 thou/uL (0.11-0.59); #Neutrophils 12.1 thou/uL (1.40-6.50); %Basophils 0.5 % (0.0-1.0); %Eosinophils 4.2 % (0.0-10.0); %Lymphocytes 8.8 % (21.0-51.0); %Monocytes 8.5 % (0.0-10.0); Hemoglobin 7.3 g/dL (12.0-16.0); Mean Corpuscular HGB CONC 31.2 g/dL (32.0-36.0); Mean Corpuscular Hemoglobin 28.6 pg (27.0-31.0); Mean Corpuscular Volume 91.5 fL (78.0-98.0); Mean Platelet Volume 7.7 fL (7.4-10.4); Platelet Count 469 thou/uL (130-400); RBC Distribution Width 16.6 % (11.5-14.5); Red Blood Cell (RBC) Count 2.56 mill/uL (4.20-5.40); White Blood Cell (WBC) Count 15.5 thou/uL (4.8-10.8)
[2020-12-02 08:23] LABS: Anion Gap 15 mmol/L (10-20); BUN (Urea Nitrogen) 22 mg/dL (7.0-18.7); Calc. Creatinine Clearance 18 mL/min (70-130); Calcium 8.6 mg/dL (7.8-10.44); Carbon Dioxide 25 mmol/L (22-29); Chloride 98 mmol/L (98-107); Glucose 93 mg/dL (70-105); Potassium 3.7 mmol/L (3.5-5.1); Sodium 134 mmol/L (136-145)
[2020-12-02] MEDS: NIFEdipine XL 30 MG TAB PO SCH (10:47)
[2020-12-02] MEDS: HumaLOG 300 UNITS/3 ML VIAL SC PRN (12:51)
[2020-12-02] MEDS: Ondansetron PF 4 MG/2 ML Vial IVP PRN (20:08)
[2020-12-02] MEDS: Atorvastatin Calcium 20 MG TAB PO SCH (20:08)
[2020-12-02] MEDS: Cefepime 0.5 GM in Sodium Chloride 0.9% 100 ML IVPB SCH (20:46)
[2020-12-03] MEDS: Acetaminophen 325 MG TAB PO PRN ×3 (00:56→17:30)
[2020-12-03] MEDS: Morphine 2 MG/ML VIAL SLOW IVP PRN ×2 (08:06→23:00)
[2020-12-03] MEDS ORDERED: Heparin 10,000 UNITS/ 10 ML VIAL ONE (08:36)
[2020-12-03 10:50] LABS: Vancomycin, Random 10.6 ug/mL (See Comment)
[2020-12-03] MEDS: Vancomycin HCl 750 MG in Sodium Chloride 0.9% 250 ML 250 ML IVPB SCH (11:52)
[2020-12-03] MEDS: Carvedilol 6.25 MG TAB PO SCH ×2 (13:58→17:31)
[2020-12-03] MEDS: Cholecalciferol 1,000 UNITS (25 MCG) TAB PO SCH (13:59)
[2020-12-03] MEDS: Benzonatate 100 MG CAP PO SCH ×3 (13:59→20:54)
[2020-12-03] MEDS: glipiZIDE 5 MG TAB PO SCH (13:59)
[2020-12-03] MEDS: NIFEdipine XL 30 MG TAB PO SCH (13:59)
[2020-12-03] MEDS: Sevelamer Carbonate 800 MG TAB PO SCH ×2 (13:59→17:31)
[2020-12-03] MEDS: HumaLOG 300 UNITS/3 ML VIAL SC PRN (17:31)
[2020-12-03] MEDS: Atorvastatin Calcium 20 MG TAB PO SCH (20:54)
[2020-12-03] MEDS: Cefepime 0.5 GM in Sodium Chloride 0.9% 100 ML IVPB SCH (21:43)
[2020-12-04 05:57] LABS: #Eosinphils 0.6 thou/uL (0.0-0.7); #Lymphocytes 1.5 thou/uL (1.20-3.40); #Monocytes 1.4 thou/uL (0.11-0.59); #Neutrophils 10.7 thou/uL (1.40-6.50); %Basophils 0.3 % (0.0-1.0); %Eosinophils 4.4 % (0.0-10.0); %Lymphocytes 10.5 % (21.0-51.0); %Monocytes 9.6 % (0.0-10.0); %Neutrophils 75.2 % (42.0-75.0); Mean Corpuscular Volume 90.7 fL (78.0-98.0); Mean Platelet Volume 7.9 fL (7.4-10.4); Platelet Count 429 thou/uL (130-400); RBC Distribution Width 16.4 % (11.5-14.5); White Blood Cell (WBC) Count 14.2 thou/uL (4.8-10.8)
[2020-12-04 06:12] LABS: Anion Gap 16 mmol/L (10-20); BUN (Urea Nitrogen) 22 mg/dL (7.0-18.7); Calc. Creatinine Clearance 19 mL/min (70-130); Calcium 8.5 mg/dL (7.8-10.44); Carbon Dioxide 25 mmol/L (22-29); Chloride 94 mmol/L (98-107); Glucose 154 mg/dL (70-105); Potassium 4.2 mmol/L (3.5-5.1); Sodium 131 mmol/L (136-145)
[2020-12-04 06:31] LABS: HBSAg Index 0.15 S/CO (0-0.99); Hep B Surf Ag Non-Reactive S/CO (NonReactive)
[2020-12-04] MEDS: glipiZIDE 5 MG TAB PO SCH (08:22)
[2020-12-04] MEDS: Cholecalciferol 1,000 UNITS (25 MCG) TAB PO SCH (08:23)
[2020-12-04] MEDS: Benzonatate 100 MG CAP PO SCH ×4 (08:23→22:05)
[2020-12-04] MEDS: Sevelamer Carbonate 800 MG TAB PO SCH ×3 (08:23→17:49)
[2020-12-04] MEDS: Acetaminophen 325 MG TAB PO PRN ×2 (09:31→22:08)
[2020-12-04] MEDS: Carvedilol 6.25 MG TAB PO SCH ×2 (09:31→17:49)
[2020-12-04] MEDS: NIFEdipine XL 30 MG TAB PO SCH (09:31)
[2020-12-04] MEDS ORDERED: PROPOFOL 0 ML ONE (11:35)
[2020-12-04] MEDS ORDERED: PROPOFOL 20 ML ONE (12:09)
[2020-12-04] MEDS: EPOETIN ALFA-EPBX (ESRD) 4,000 UNIT/ML VIAL SC SCH (17:48)
[2020-12-04] MEDS: HumaLOG 300 UNITS/3 ML VIAL SC PRN (17:49)
[2020-12-04] MEDS: Atorvastatin Calcium 20 MG TAB PO SCH (22:04)
[2020-12-04] MEDS: Morphine 2 MG/ML VIAL SLOW IVP PRN (22:15)
[2020-12-04] MEDS: Ondansetron PF 4 MG/2 ML Vial IVP PRN (22:15)
[2020-12-05] MEDS: Sevelamer Carbonate 800 MG TAB PO SCH ×3 (08:08→18:10)
[2020-12-05] MEDS: Benzonatate 100 MG CAP PO SCH ×3 (08:08→20:20)
[2020-12-05] MEDS: Cholecalciferol 1,000 UNITS (25 MCG) TAB PO SCH (08:08)
[2020-12-05] MEDS: Carvedilol 6.25 MG TAB PO SCH ×2 (08:08→18:10)
[2020-12-05] MEDS: NIFEdipine XL 30 MG TAB PO SCH (08:08)
[2020-12-05] MEDS: glipiZIDE 5 MG TAB PO SCH (08:08)
[2020-12-05] MEDS ORDERED: Heparin 10,000 UNITS/ 10 ML VIAL ONE (08:57)
[2020-12-05] MEDS: Acetaminophen 325 MG TAB PO PRN ×2 (10:40→20:20)
[2020-12-05 11:30] LABS: Vancomycin, Random 9.1 ug/mL (See Comment)
[2020-12-05] MEDS ORDERED: Sodium Chloride 0.65% Nasal 44 ML BOT EA NARE PRN (13:22)
[2020-12-05] MEDS ORDERED: HYDROcodone/Acetaminophen 5/325 mg Tablet PO PRN (13:23)
[2020-12-05] MEDS ORDERED: Cyclobenzaprine 10 MG TAB PO SCH (13:30)
[2020-12-05] MEDS: guaiFENesin/Codeine 200 mg/20 mg 10 ml Cup PO PRN (18:10)
[2020-12-05] MEDS: Atorvastatin Calcium 20 MG TAB PO SCH (20:20)
[2020-12-06] MEDS: guaiFENesin/Codeine 200 mg/20 mg 10 ml Cup PO PRN ×2 (04:12→21:17)
[2020-12-06] MEDS: Acetaminophen 325 MG TAB PO PRN ×2 (04:12→21:15)
[2020-12-06 05:51] LABS: #Basophils 0.1 thou/uL (0.0-0.2); #Eosinphils 0.7 thou/uL (0.0-0.7); #Lymphocytes 1.4 thou/uL (1.20-3.40); #Monocytes 1.3 thou/uL (0.11-0.59); #Neutrophils 11.1 thou/uL (1.40-6.50); %Basophils 0.6 % (0.0-1.0); %Eosinophils 4.8 % (0.0-10.0); %Lymphocytes 9.8 % (21.0-51.0); %Monocytes 8.7 % (0.0-10.0); %Neutrophils 76.1 % (42.0-75.0); Mean Corpuscular HGB CONC 31.2 g/dL (32.0-36.0); Mean Corpuscular Hemoglobin 28.3 pg (27.0-31.0); Mean Platelet Volume 7.9 fL (7.4-10.4); Platelet Count 517 thou/uL (130-400); RBC Distribution Width 16.3 % (11.5-14.5); Red Blood Cell (RBC) Count 2.48 mill/uL (4.20-5.40); White Blood Cell (WBC) Count 14.6 thou/uL (4.8-10.8)
[2020-12-06] MEDS: Carvedilol 6.25 MG TAB PO SCH ×2 (09:03→17:34)
[2020-12-06] MEDS: Benzonatate 100 MG CAP PO SCH ×3 (09:04→21:17)
[2020-12-06] MEDS: glipiZIDE 5 MG TAB PO SCH (09:04)
[2020-12-06] MEDS: Cholecalciferol 1,000 UNITS (25 MCG) TAB PO SCH (09:04)
[2020-12-06] MEDS: Sevelamer Carbonate 800 MG TAB PO SCH ×3 (09:04→17:35)
[2020-12-06] MEDS: NIFEdipine XL 30 MG TAB PO SCH (09:05)
[2020-12-06] MEDS ORDERED: Iopamidol-370 76% 500 ML 1 ML ONE (09:59)
[2020-12-06] MEDS: cefTRIAXone\\ROCEPHIN 2 GM in Sodium Chloride 0.9% 100 ML IVPB SCH (15:31)
[2020-12-06] MEDS: Ondansetron PF 4 MG/2 ML Vial IVP PRN (21:15)
[2020-12-06] MEDS: Atorvastatin Calcium 20 MG TAB PO SCH (21:17)
[2020-12-07 05:32] LABS: #Basophils 0.1 thou/uL (0.0-0.2); #Eosinphils 0.7 thou/uL (0.0-0.7); #Lymphocytes 1.3 thou/uL (1.20-3.40); #Neutrophils 8.7 thou/uL (1.40-6.50); %Basophils 0.7 % (0.0-1.0); %Eosinophils 6.3 % (0.0-10.0); %Lymphocytes 10.7 % (21.0-51.0); %Monocytes 8.5 % (0.0-10.0); %Neutrophils 73.7 % (42.0-75.0); Hemoglobin 7.1 g/dL (12.0-16.0); Mean Corpuscular HGB CONC 30.5 g/dL (32.0-36.0); Mean Corpuscular Hemoglobin 27.8 pg (27.0-31.0); Mean Corpuscular Volume 90.9 fL (78.0-98.0); Mean Platelet Volume 7.9 fL (7.4-10.4); Platelet Count 488 thou/uL (130-400); Red Blood Cell (RBC) Count 2.57 mill/uL (4.20-5.40); White Blood Cell (WBC) Count 11.8 thou/uL (4.8-10.8)
[2020-12-07 05:51] LABS: Anion Gap 17 mmol/L (10-20); BUN (Urea Nitrogen) 30 mg/dL (7.0-18.7); Calc. Creatinine Clearance 15 mL/min (70-130); Calcium 8.9 mg/dL (7.8-10.44); Carbon Dioxide 27 mmol/L (22-29); Chloride 91 mmol/L (98-107); Glucose 106 mg/dL (70-105); Potassium 4.3 mmol/L (3.5-5.1); Sodium 131 mmol/L (136-145)
[2020-12-07] MEDS: glipiZIDE 5 MG TAB PO SCH (07:53)
[2020-12-07] MEDS: Benzonatate 100 MG CAP PO SCH ×3 (07:54→21:50)
[2020-12-07] MEDS: Carvedilol 6.25 MG TAB PO SCH ×2 (07:54→16:59)
[2020-12-07] MEDS: NIFEdipine XL 30 MG TAB PO SCH (07:54)
[2020-12-07] MEDS: Cholecalciferol 1,000 UNITS (25 MCG) TAB PO SCH (07:54)
[2020-12-07] MEDS: Sevelamer Carbonate 800 MG TAB PO SCH ×3 (07:54→16:59)
[2020-12-07] MEDS: Acetaminophen 325 MG TAB PO PRN (09:08)
[2020-12-07] MEDS ORDERED: Docusate 100 MG CAP PO PRN (11:17)
[2020-12-07] MEDS ORDERED: Polyethylene Glycol 3350 17 GM Packet PO PRN (11:17)
[2020-12-07] MEDS ORDERED: diphenhydrAMINE 25 MG CAP PO PRN (13:09)
[2020-12-07] MEDS: cefTRIAXone\\ROCEPHIN 2 GM in Sodium Chloride 0.9% 100 ML IVPB SCH (16:59)
[2020-12-07] MEDS: Ondansetron PF 4 MG/2 ML Vial IVP PRN (17:05)
[2020-12-07] MEDS: Atorvastatin Calcium 20 MG TAB PO SCH (21:50)
[2020-12-07] MEDS: Apixaban 2.5 MG TAB PO SCH (21:50)
[2020-12-08] MEDS: Apixaban 2.5 MG TAB PO SCH ×2 (07:52→22:01)
[2020-12-08] MEDS: Benzonatate 100 MG CAP PO SCH ×3 (07:52→22:01)
[2020-12-08] MEDS: Cholecalciferol 1,000 UNITS (25 MCG) TAB PO SCH (07:52)
[2020-12-08] MEDS: Sevelamer Carbonate 800 MG TAB PO SCH ×3 (07:52→16:54)
[2020-12-08] MEDS: Polyethylene Glycol 3350 17 GM Packet PO SCH (07:52)
[2020-12-08] MEDS: glipiZIDE 5 MG TAB PO SCH (07:52)
[2020-12-08] MEDS: Carvedilol 6.25 MG TAB PO SCH ×2 (08:28→16:54)
[2020-12-08] MEDS: NIFEdipine XL 30 MG TAB PO SCH (08:29)
[2020-12-08] MEDS ORDERED: Heparin 10,000 UNITS/ 10 ML VIAL ONE (08:36)
[2020-12-08] MEDS: Acetaminophen 325 MG TAB PO PRN (08:48)
[2020-12-08 09:18] LABS: Vancomycin, Random 6.8 ug/mL (See Comment)
[2020-12-08] MEDS: cefTRIAXone\\ROCEPHIN 2 GM in Sodium Chloride 0.9% 100 ML IVPB SCH (14:54)
[2020-12-08] MEDS: Atorvastatin Calcium 20 MG TAB PO SCH (22:01)
[2020-12-09 08:29] VITALS: BP 148/70; TEMP 98.3
[2020-12-09] MEDS: Sevelamer Carbonate 800 MG TAB PO SCH ×2 (08:50→13:34)
[2020-12-09] MEDS: glipiZIDE 5 MG TAB PO SCH (08:50)
[2020-12-09] MEDS: Benzonatate 100 MG CAP PO SCH ×2 (08:51→16:24)
[2020-12-09] MEDS: Cholecalciferol 1,000 UNITS (25 MCG) TAB PO SCH (08:51)
[2020-12-09] MEDS: Apixaban 2.5 MG TAB PO SCH (08:51)
[2020-12-09] MEDS: Carvedilol 6.25 MG TAB PO SCH (08:51)
[2020-12-09] MEDS: Polyethylene Glycol 3350 17 GM Packet PO SCH (08:53)
[2020-12-09] MEDS: NIFEdipine XL 30 MG TAB PO SCH (08:53)
[2020-12-09] MEDS: cefTRIAXone\\ROCEPHIN 2 GM in Sodium Chloride 0.9% 100 ML IVPB SCH (16:24)
== END 2020-12-09 17:18 | disposition home or self-care (01) | DRG 314 ==
LOC: ERS 16:34 → T4-A 18:29
PROVIDERS: ADMIT Internal Medicine; ATTEND Family Medicine
PROC: 0JH60XZ Insertion of Tunneled Vascular Access Device into Chest Subcutaneous Tissue and Fascia, Open Approach (ICD-10-PCS; 2020-11-26)
PROC: 02HV33Z Insertion of Infusion Device into Superior Vena Cava, Percutaneous Approach (ICD-10-PCS; 2020-11-26)
PROC: 5A1D70Z Performance of Urinary Filtration, Intermittent, Less than 6 Hours Per Day (ICD-10-PCS; 2020-11-26)
PROC: B548ZZA Ultrasonography of Superior Vena Cava, Guidance (ICD-10-PCS; 2020-11-26)
PROC: 02PYX3Z Removal of Infusion Device from Great Vessel, External Approach (ICD-10-PCS; principal; 2020-11-27)
PROC: B24BZZ4 Ultrasonography of Heart with Aorta, Transesophageal (ICD-10-PCS; 2020-12-04)
DX: T80.211A Bloodstream infection due to central venous catheter, initial encounter (principal); A40.8 Other streptococcal sepsis; R65.20 Severe sepsis without septic shock; N18.6 End stage renal disease; N25.81 Secondary hyperparathyroidism of renal origin; I50.42 Chronic combined systolic (congestive) and diastolic (congestive) heart failure; Z20.822 Contact with and (suspected) exposure to COVID-19; I11.0 Hypertensive heart disease with heart failure; E11.22 Type 2 diabetes mellitus with diabetic chronic kidney disease; D63.1 Anemia in chronic kidney disease; Y84.1 Kidney dialysis as the cause of abnormal reaction of the patient, or of later complication, without mention of misadventure at the time of the procedure; E66.9 Obesity, unspecified; Z79.84 Long term (current) use of oral hypoglycemic drugs; Z79.899 Other long term (current) drug therapy; Z99.2 Dependence on renal dialysis; Z90.710 Acquired absence of both cervix and uterus; Z68.31 Body mass index [BMI] 31.0-31.9, adult
CPT/HCPCS: 36415; 36416; 71045; 71046; 71260; 74177; 80048; 80053; 80202; 81001; 81025; 83605; 83880; 83970; 84100; 85025; 85610; 85652; 85730; 86850; 86900; 86901; 87040; 87340; 90935; 93005; 93312; 94760; 96365; C1752; G0257; J0692; J0696; J1644; J1815; J2270; J2405; J2543; J2704; J3370; J3490; J7050; Q0163; Q5105; Q9967; S0020; U0003; U0005

== ENCOUNTER → 2021-02-19 | Day surgery (SDC) | payer BC ==
[2021-02-18 10:25] VITALS: BMI 33.3
[~2021-02-19] MED LIST: Acetaminophen 500 MG TAB ONE; Bupivacaine PF 0.5% 30 ML VIAL ONE; Fentanyl 100 MCG/2 ML VIAL ONE; Heparin 10,000 UNITS/ 10 ML VIAL ONE; Lidocaine 1% w/Epinephrine 1:100K 20 ML VIAL ONE; Midazolam HCl 2 mg/2 ml Vial ONE; PROPOFOL 200 MG/20 ML VIAL ONE; Propofol 500 MG/50 ML VIAL ONE; Sodium Chloride 0.9% 10 ML ONE; Sodium Chloride 0.9% 20 ML ONE
== END ==
LOC: SDC 08:06
PROVIDERS: ATTEND Specialist
PROC: 0JH63XZ Insertion of Tunneled Vascular Access Device into Chest Subcutaneous Tissue and Fascia, Percutaneous Approach (ICD-10-PCS; principal; 2021-02-19)
DX: N18.6 End stage renal disease (principal); T82.7XXA Infection and inflammatory reaction due to other cardiac and vascular devices, implants and grafts, initial encounter; Z79.84 Long term (current) use of oral hypoglycemic drugs; Z79.899 Other long term (current) drug therapy; Z99.2 Dependence on renal dialysis; Y73.1 Therapeutic (nonsurgical) and rehabilitative gastroenterology and urology devices associated with adverse incidents
CPT/HCPCS: 71045; C1752; J0690; J1644; J2250; J2704; J3010; S0020

== ENCOUNTER 2021-02-24 07:08 | Day surgery (SDC) | payer BC ==
[2021-02-24 07:53] VITALS: BMI 29.3
[2021-02-24 07:59] VITALS: TEMP 97.6
[2021-02-24] MEDS ORDERED: Heparin 1,000 UNITS/ML VIAL ONE (11:26)
[2021-02-24 11:31] VITALS: BP 122/81
[2021-02-24] MEDS ORDERED: Iopamidol 300 61% 100 ML VIAL FS ONE (12:03)
== END 2021-02-24 11:25 | disposition home or self-care (01) ==
LOC: SPEC 07:08
PROVIDERS: ATTEND Specialist
PROC: 02PY33Z Removal of Infusion Device from Great Vessel, Percutaneous Approach (ICD-10-PCS; principal; 2021-02-24)
DX: N18.6 End stage renal disease (principal); E78.00 Pure hypercholesterolemia, unspecified; Z79.84 Long term (current) use of oral hypoglycemic drugs; Z79.899 Other long term (current) drug therapy; Z99.2 Dependence on renal dialysis
CPT/HCPCS: 36901; J1644; Q9967

== ENCOUNTER 2023-08-09 08:53 | Outpatient (CLI) | payer BC | END 2023-08-09 08:54 | disposition home or self-care (01) | LOC: BICULT 08:53 | PROVIDERS: ATTEND Internal Medicine Nephrology | DX: M79.89 Other specified soft tissue disorders (principal) ==